=== PATIENT | male | born 1945 | race Caucasian/White ===

== ENCOUNTER 2018-03-25 09:22 | Inpatient (IN) ==
[2018-03-25] MEDS ORDERED: Pantoprazole Inj 80 MG in Sodium Chlor 0.9% Inj 50 ML IV.SIG ONE (09:54)
--- NOTE | 2018-03-25 09:58 | ED ---
HPI General Chief complaint: GI Bleed Stated complaint: GI Bleed Time Seen by Provider: 03/25/18 09:54 Source: patient Mode of arrival: ambulatory Limitations: no limitations History of Present Illness HPI Narrative: 73-year-old male patient presents to the ER today because he states that over the last few weeks he has been having diarrhea and over the last few days he started vomiting, was vomiting blood last night, and this morning vomited up dark blood as well as having dark diarrhea that is appearing tarry. He states that he was having palpitations this morning. He denies significant abdominal pains. He denies other issues. Modifying Factors: None Associated Signs & Symptoms: Nausea, vomiting, diarrhea, dark stools, GI bleed Risk Factors: None Related Data Home Medications Medication Instructions Recorded Confirmed alprazolam 1 mg PO BID PRN 03/25/18 03/25/18 buspirone 5 mg PO BID PRN 03/25/18 03/25/18 Allergies Allergy/AdvReac Type Severity Reaction Status Date / Time No Known Allergies Allergy Verified 03/25/18 09:48 Review of Systems ROS: all other systems reviewed are negative PMFSH History History Provided By: Patient Medical History Medical History Anxiety (Acute) Surgical History Surgical History Hx of appendectomy (Acute) Social History Social History Smoking Status: Former smoker How Often Do You Have a Drink Containing Alcohol: 4 or more times a week Recent Travel in [facility] within the Last 8 Weeks: No Recent Out of Country Travel within the Last 8 Weeks: No Exam Narrative Exam Narrative: GENERAL: Well-developed elderly white male patient currently in mild distress. Awake and oriented x3. SKIN: Focused skin assessment warm/dry. HEAD: Atraumatic. Normocephalic. EYES: Pupils equal and round. No scleral icterus. No injection or drainage. ENT: No nasal bleeding or discharge. Mucous membranes pink and moist. NECK: Trachea midline. No JVD. CARDIOVASCULAR: Regular rate and rhythm. No murmur appreciated. RESPIRATORY: No accessory muscle use. Clear to auscultation. Breath sounds equal bilaterally. GASTROINTESTINAL: Abdomen soft, non-tender, nondistended. Hepatic and splenic margins not palpable. RECTAL EXAM: No masses or tenderness, stool is dark, Hemoccult positive. MUSCULOSKELETAL: No obvious deformities. No clubbing. No cyanosis. No edema. NEUROLOGICAL: Awake and alert. No obvious cranial nerve deficits. Motor grossly within normal limits. Normal speech. PSYCHIATRIC: Appropriate mood and affect; insight and judgment normal. Procedures Hemaprompt Stool Procedural Steps Taken: specimen placed in appropriate test area, developer placed on specimen and control areas and controls appropriately positive and negative Hemaprompt Stool Result: positive Course Initial Documented Vital Signs Temperature 98.3 F 03/25/18 09:50 Pulse Rate 119 H 03/25/18 09:50 Respiratory Rate 18 03/25/18 09:50 Blood Pressure 127/58 L 03/25/18 09:50 Pulse Oximetry 100 03/25/18 09:50 Last Documented Vital Signs Temperature 98.3 F 03/25/18 09:50 Pulse Rate 119 H 03/25/18 09:50 Respiratory Rate 18 03/25/18 09:50 Blood Pressure 127/58 L 03/25/18 09:50 Pulse Oximetry 100 03/25/18 09:50 Medical Decision Making MDM Narrative Medical decision making narrative: Hemoccult is positive, there is suspicion of GI bleed. Patient was given Protonix in the ER and at this point, H&H is stable and vital signs are stable as well. Case is discussed with Dr. Givens for admission. Medical Screen Exam Complete: Yes Emergency Medical Condition: Yes Differential Diagnosis Differential Diagnosis: GI bleed GI bleed versus gastritis versus gastroenteritis Lab Data Lab results reviewed: Yes I reviewed the patient's lab results. Result diagrams: 03/25/18 10:00 03/25/18 10:00 Lab Results 03/25/18 03/25/18 03/25/18 Range/Units 10:00 10:00 10:00 WBC 8.0 (4.0-11.0) th/mm3 RBC 3.03 L (4.50-5.90) mil/mm3 Hgb 10.8 L (13.0-17.0) gm/dL Hct 31.9 L (39.0-51.0) % MCV 105.0 H (80.0-100.0) fL MCH 35.5 H (27.0-34.0) pg MCHC 33.8 (32.0-36.0) % RDW 17.7 H (11.6-17.2) % Plt Count 212 (150-450) th/mm3 MPV 9.2 (7.0-11.0) fL Neut % (Auto) 77.1 H (16.0-70.0) % Lymph % (Auto) 16.9 (9.0-44.0) % [place] % (Auto) 5.4 (0.0-8.0) % Eos % (Auto) 0.2 (0.0-4.0) % Baso % (Auto) 0.4 (0.0-2.0) % Neut # (Auto) 6.1 (1.8-7.7) th/mm3 Lymph # (Auto) 1.3 (1.0-4.8) th/mm3 [place] # (Auto) 0.4 (0.0-0.9) th/mm3 Eos # (Auto) 0.0 (0.0-0.4) th/mm3 Baso # (Auto) 0.0 (0.0-0.2) th/mm3 WBC Differential . Differential Comment Auto diff final PT 16.9 H (9.8-11.6) sec INR 1.7 Ratio APTT 26.6 (23.4-31.7) sec Sodium 142 (136-145) meq/L Potassium 4.8 (3.5-5.1) meq/L Chloride 109 H (98-107) meq/L Carbon Dioxide 22.0 (21.0-32.0) meq/L Anion Gap 11 (5-15) meq/L BUN 53 H (7-18) mg/dL Creatinine 1.41 H (0.60-1.30) mg/dL Estimated GFR 49 L (>89) mL/min Random Glucose 157 H (74-106) mg/dL Calcium 8.2 L (8.5-10.1) mg/dL Total Bilirubin 1.5 H (0.2-1.0) mg/dL AST 76 H (15-37) U/L ALT 37 (12-78) U/L Alkaline Phosphatase 203 H (45-117) U/L Total Protein 6.4 (6.4-8.2) g/dL Albumin 2.5 L (3.4-5.0) g/dL Blood Type Blood Type Recheck Antibody Screen 03/25/18 Range/Units 10:00 WBC (4.0-11.0) th/mm3 RBC (4.50-5.90) mil/mm3 Hgb (13.0-17.0) gm/dL Hct (39.0-51.0) % MCV (80.0-100.0) fL MCH (27.0-34.0) pg MCHC (32.0-36.0) % RDW (11.6-17.2) % Plt Count (150-450) th/mm3 MPV (7.0-11.0) fL Neut % (Auto) (16.0-70.0) % Lymph % (Auto) (9.0-44.0) % [place] % (Auto) (0.0-8.0) % Eos % (Auto) (0.0-4.0) % Baso % (Auto) (0.0-2.0) % Neut # (Auto) (1.8-7.7) th/mm3 Lymph # (Auto) (1.0-4.8) th/mm3 [place] # (Auto) (0.0-0.9) th/mm3 Eos # (Auto) (0.0-0.4) th/mm3 Baso # (Auto) (0.0-0.2) th/mm3 WBC Differential Differential Comment PT (9.8-11.6) sec INR Ratio APTT (23.4-31.7) sec Sodium (136-145) meq/L Potassium (3.5-5.1) meq/L Chloride (98-107) meq/L Carbon Dioxide (21.0-32.0) meq/L Anion Gap (5-15) meq/L BUN (7-18) mg/dL Creatinine (0.60-1.30) mg/dL Estimated GFR (>89) mL/min Random Glucose (74-106) mg/dL Calcium (8.5-10.1) mg/dL Total Bilirubin (0.2-1.0) mg/dL AST (15-37) U/L ALT (12-78) U/L Alkaline Phosphatase (45-117) U/L Total Protein (6.4-8.2) g/dL Albumin (3.4-5.0) g/dL Blood Type O Positive Blood Type Recheck Not needed Antibody Screen Negative Discharge Plan Discharge Disposition Patient Disposition: 30 Still Patient Discharge Condition Condition: Stable Discharge Details Anticipated Discharge Date: 03/25/18 Diagnosis: Upper gastrointestinal hemorrhage Physicians Team ED Provider: Jonatan Dailey Primary Care Provider: Primary Care Marily Martin Rxs /Orders / Referrals /Forms Prescriptions: No Action buspirone 5 mg Tablet 5 mg PO BID PRN (Reason: Anxiety) RF: 0 alprazolam 1 mg Tablet 1 mg PO BID PRN (Reason: Anxiety) RF: 0 Status ED Status: With Doctor
[2018-03-25 10:12] LABS: Baso % (Auto) 0.4 % (0.0-2.0); Eos % (Auto) 0.2 % (0.0-4.0); Hematocrit 31.9 % (39.0-51.0); Hemoglobin 10.8 gm/dL (13.0-17.0); Lymph # (Auto) 1.3 th/mm3 (1.0-4.8); Lymph % (Auto) 16.9 % (9.0-44.0); Mean Corpuscular HGB Conc 33.8 % (32.0-36.0); Mean Corpuscular Hemoglobin 35.5 pg (27.0-34.0); Mean Platelet Volume 9.2 fL (7.0-11.0); Mono # (Auto) 0.4 th/mm3 (0.0-0.9); Mono % (Auto) 5.4 % (0.0-8.0); Neut # (Auto) 6.1 th/mm3 (1.8-7.7); Neut % (Auto) 77.1 % (16.0-70.0); Platelet Count 212 th/mm3 (150-450); Red Blood Count 3.03 mil/mm3 (4.50-5.90); Red Cell Distribution Width 17.7 % (11.6-17.2)
[2018-03-25 10:23] LABS: Activated Partial Thrombo Time 26.6 sec (23.4-31.7); INR 1.7 Ratio; Prothrombin Time 16.9 sec (9.8-11.6)
[2018-03-25 10:38] LABS: Albumin 2.5 g/dL (3.4-5.0); Anion Gap 11 meq/L (5-15); Aspartate Aminotransferase 76 U/L (15-37); Blood Urea Nitrogen 53 mg/dL (7-18); Calcium 8.2 mg/dL (8.5-10.1); Chloride 109 meq/L (98-107); Glomerular Filtration Rate 49 mL/min (>89); Glucose,Random 157 mg/dL (74-106); Potassium 4.8 meq/L (3.5-5.1); Sodium 142 meq/L (136-145)
[2018-03-25 10:42] LABS: Alanine Aminotransferase 37 U/L (12-78); Alkaline Phosphatase 203 U/L (45-117); Total Protein 6.4 g/dL (6.4-8.2)
[2018-03-25] MEDS ORDERED: Bisacodyl 10 MG Supp RECTAL PRN (11:15)
[2018-03-25] MEDS ORDERED: Acetaminophen 325 MG Tablet PO PRN (11:15)
[2018-03-25] MEDS: Pantoprazole Inj 40 MG Vial IV.PUSH SCH (11:47)
--- NOTE | 2018-03-25 12:14 | P.HP ---
History of Present Illness Service: Hospitalist Primary Care Physician: No Primary Care Physician Chief Complaint: Diarrhea, dark stool, dark nausea/vomiting. History of Present Illness: Mr. Mitchell is a pleasant 73-year-old male with a history of anxiety, alcohol use who presents to the emergency department due to 3-week duration of diarrhea as well as 2-day duration of nausea vomiting with dark cool type of vomitus. Patient has been having diarrhea for 3 weeks that is greasy and sludge in quality. Initially he did not have much abdominal pain. However in the last few days, he started experiencing abdominal pain. Yesterday and this morning he noticed red blood in the stool. Patient also started having some nausea vomiting. He noticed dark cool color vomitus. Patient denies any history of any liver disease. He does drink 3-4 beer a day. Upon admission patient's hemoglobin was 10.8, MCV 105, INR 1.7, BUN 53 and creatinine 1.41. Past medical history: Anxiety Past surgical history: Appendectomy after ruptured appendix 12 years ago Social history: He quit smoking in 1974. He drinks 3-4 beers a day. Family history: Significant history of liver cancer in the maternal side of the family. Patient's mother had liver cancer at age 58. Inpatient Certification: I certify that the inpatient services were ordered in accordance with Medicare regulations governing the order. This includes certification that hospital inpatient services are reasonable and necessary and in the case of services not specified as inpatient-only under 42 CFR 419.22(n), that they are appropriately provided as inpatient services in accordance to with the 2-midnight benchmark under 43 CFR 412.3(e) Estimated Total Length of Stay (Days): 3 Plans for Post Hospital Care: Not yet determined Review of Systems All other systems reviewed negative except as stated [facility] - History History Provided By: Patient - Medical History Medical History: Medical History (Last Reviewed 03/25/18 @ 12:30 by Rachid Guerra DO) Anxiety - Surgical History Surgical History: Surgical History (Last Reviewed 03/25/18 @ 12:30 by Rachid Guerra DO) Hx of appendectomy - Tobacco History Smoking Status: Former smoker - Alcohol History How Often Do You Have a Drink Containing Alcohol: 4 or more times a week - Travel History Recent Travel in the [place] Within the Last 8 Weeks: No Recent Travel Out of the Country Within the Last 8 Weeks: No - Immunization History Tetanus Immunization: Unsure Medications and Allergies Active Medications: Active Medications Acetaminophen (Tylenol) 650 mg PO Q4H PRN PRN Reason: Headache, fever, pain 1-4 Al Hydroxide/Mg Hydroxide (Milk Of Magnesia Liq) 30 ml PO Q12H PRN PRN Reason: Mild Constipation Alprazolam (Xanax) 1 mg PO BID PRN PRN Reason: Anxiety Bisacodyl (Dulcolax Supp) 10 mg RECTAL DAILY PRN PRN Reason: SEVERE CONSITIPATION Buspirone HCl (Buspar) 5 mg PO BID PRN PRN Reason: Anxiety Sodium Chloride (Ns Inj) 1,000 mls @ 100 mls/hr IV.CONT .Q10H MARY Ceftriaxone Sodium 1,000 mg/ (Sodium Chloride) 100 mls @ 200 mls/hr IV.SIG Q24H [facility] Last Admin: 03/25/18 12:11 Dose: 200 mls/hr Lactulose (Lactulose Liq) 30 ml PO DAILY PRN PRN Reason: SEVERE CONSITIPATION Ondansetron HCl (Zofran Inj) 4 mg IV.PUSH Q6H PRN PRN Reason: NAUSEA OR VOMITING Pantoprazole Sodium (Protonix Inj) 40 mg IV.PUSH Q12H [facility] Last Admin: 03/25/18 11:47 Dose: Not Given Sennosides (Senokot) 17.2 mg PO Q12H PRN PRN Reason: Moderate Constipation Sodium Chloride (Ns Flush) 2 ml IV.FLUSH PRN PRN PRN Reason: FLUSH AFTER USING IV ACCESS Last Admin: 03/25/18 10:26 Dose: 2 ml Allergies Allergy/AdvReac Type Severity Reaction Status Date / Time No Known Allergies Allergy Verified 03/25/18 09:48 Home Medications Medication Instructions Recorded Confirmed Type alprazolam 1 mg PO BID PRN 03/25/18 03/25/18 History buspirone 5 mg PO BID PRN 03/25/18 03/25/18 History Exam Vital signs: Vital Signs 03/25/18 09:50 Temperature 98.3 F Pulse Rate 119 H Respiratory Rate 18 Blood Pressure 127/58 L Pulse Oximetry 100 Intake & Output 03/24/18 03/25/18 03/25/18 18:59 06:59 18:59 Weight 65.771 kg Narrative: GENERAL: This is a well-nourished, well-developed patient, in no apparent distress. SKIN: No rashes, ecchymoses or lesions. Warm and dry. HEAD: Atraumatic. Normocephalic. No temporal or scalp tenderness. EYES: Pupils equal round and reactive. No injection or drainage. ENT: Nose without bleeding, purulent drainage or septal hematoma. Airway patent. NECK: Trachea midline. No lymphadenopathy. Supple, nontender, no meningeal signs. CARDIOVASCULAR: Regular rate and rhythm without murmurs, gallops, or rubs. No JVD. RESPIRATORY: Clear to auscultation. Breath sounds equal bilaterally. No wheezes , rales, or rhonchi. GASTROINTESTINAL: Abdomen somewhat distended, some mild pressure-like tenderness on palpation on the right upper quadrant. MUSCULOSKELETAL: Extremities without clubbing, cyanosis, or edema. NEUROLOGICAL: Awake and alert. Cranial nerves II through XII intact. No focal neurological deficits. Normal speech. Results - Labs CBC & Chem 7: 03/25/18 10:00 03/25/18 10:00 Labs: Laboratory Results - last 24 hr 03/25/18 03/25/18 03/25/18 10:00 10:00 10:00 WBC 8.0 RBC 3.03 L Hgb 10.8 L Hct 31.9 L MCV 105.0 H MCH 35.5 H MCHC 33.8 RDW 17.7 H Plt Count 212 MPV 9.2 Neut % (Auto) 77.1 H Lymph % (Auto) 16.9 [place] % (Auto) 5.4 Eos % (Auto) 0.2 Baso % (Auto) 0.4 Neut # (Auto) 6.1 Lymph # (Auto) 1.3 [place] # (Auto) 0.4 Eos # (Auto) 0.0 Baso # (Auto) 0.0 WBC Differential . Differential Comment Auto diff final PT 16.9 H INR 1.7 APTT 26.6 Sodium 142 Potassium 4.8 Chloride 109 H Carbon Dioxide 22.0 Anion Gap 11 BUN 53 H Creatinine 1.41 H Estimated GFR 49 L Random Glucose 157 H Calcium 8.2 L Total Bilirubin 1.5 H AST 76 H ALT 37 Alkaline Phosphatase 203 H Total Protein 6.4 Albumin 2.5 L Blood Type Blood Type Recheck Antibody Screen 03/25/18 10:00 WBC RBC Hgb Hct MCV MCH MCHC RDW Plt Count MPV Neut % (Auto) Lymph % (Auto) [place] % (Auto) Eos % (Auto) Baso % (Auto) Neut # (Auto) Lymph # (Auto) [place] # (Auto) Eos # (Auto) Baso # (Auto) WBC Differential Differential Comment PT INR APTT Sodium Potassium Chloride Carbon Dioxide Anion Gap BUN Creatinine Estimated GFR Random Glucose Calcium Total Bilirubin AST ALT Alkaline Phosphatase Total Protein Albumin Blood Type O Positive Blood Type Recheck Not needed Antibody Screen Negative Caprini VTE Risk Assessment Caprini VTE Risk Assessment: No/Low Risk (score <= 1) Caprini Risk Assessment Model: Point Value = 1 Point Value = 2 Point Value = 3 Point Value = 5 Age 41-60 Minor surgery BMI > 25 kg/m2 Swollen legs Varicose veins or History of unexplained or recurrent spontaneous Oral contraceptives or hormone replacement Sepsis (< 1 month) Serious lung disease, including pneumonia (< 1 month) Abnormal pulmonary function Acute myocardial infarction Congestive heart failure (< 1 month) History of inflammatory bowel disease Medical patient at bed rest Age 61-74 Arthroscopic surgery Major open surgery (> 45 min) Laparoscopic surgery (> 45 min) Malignancy Confined to bed (> 72 hours) Immobilizing plaster cast Central venous access Age >= 75 History of VTE Family history of VTE Factor V Leiden Prothrombin [id number] Lupus anticoagulant Anticardiolipin antibodies Elevated serum homocysteine Heparin-induced thrombocytopenia Other congenital or acquired thrombophilia Stroke (< 1 month) Elective arthroplasty Hip, pelvis, or leg fracture Acute spinal cord injury (< 1 month) Prophylaxis Regimen: Total Risk Factor Score Risk Level Prophylaxis Regimen 0-1 Low Early ambulation 2 Moderate Order ONE of the following: *Sequential Compression Device (SCD) *Heparin 5000 units SQ BID 3-4 Higher Order ONE of the following medications: *Heparin 5000 units SQ TID *Enoxaparin/Lovenox 40 mg SQ daily (WT < 150 kg, CrCl > 30 mL/min) *Enoxaparin/Lovenox 30 mg SQ daily (WT < 150 kg, CrCl > 10-29 mL/min) *Enoxaparin/Lovenox 30 mg SQ BID (WT < 150 kg, CrCl > 30 mL/min) AND/OR *Sequential Compression Device (SCD) 5 or more Highest Order ONE of the following medications: *Heparin 5000 units SQ TID (Preferred with Epidurals) *Enoxaparin/Lovenox 40 mg SQ daily (WT < 150 kg, CrCl > 30 mL/min) *Enoxaparin/Lovenox 30 mg SQ daily (WT < 150 kg, CrCl > 10-29 mL/min) *Enoxaparin/Lovenox 30 mg SQ BID (WT < 150 kg, CrCl > 30 mL/min) AND *Sequential Compression Device (SCD) Assessment and Plan - Plan Mr. Mitchell is a 73-year-old male with a history of anxiety, alcohol use who presents to the emergency department due to 3-week duration of diarrhea and 2- day duration of nausea vomiting with dark material. Hemoglobin on admission 10.8. Acute diarrhea Anemia with possible acute GI blood loss Possible alcoholic liver disease Hemoglobin was 13-15 in 2015. Hemoglobin currently 10.8. We will consult gastroenterology for possible EGD and colonoscopy. Patient's history of alcohol use is concerning for liver disease. His INR is elevated to 1.7. We will obtain liver ultrasound. Start ceftriaxone 1 g daily for possible variceal bleed. Continue IV normal saline at 150 cc/h. Anxiety Continue buspirone and Xanax as needed. Alcohol abuse Patient drinks 3-4 beers a day. He is counseled to consider quitting alcohol altogether. Sinus Tachycardia EKG shows sinus tach. Possibly due to dehydration -Continue IV hydration. Full code. SCDs for DVT Prophylaxis.
[2018-03-25] MEDS: Sod Chloride 0.9% Inj 1,000 ML IV.CONT SCH ×2 (13:08→22:07)
--- NOTE | 2018-03-25 14:59 | P.CONGI ---
History of Present Illness Consult date: 03/25/18 Consult reason: Upper GI bleed Chief complaint: GI bleed History of Present Illness: This patient is a 73-year-old male who presents to the emergency room today with report of loose stools over the last few days with nausea and vomiting. Patient has history of anxiety and alcohol use. Surgical history includes appendectomy. Patient states that this morning he vomited up dark blood as well as had dark loose stool that he describes as black and tarry. Patient denies abdominal pain, fever or chills. Upon consultation, patient reports 3-week history of projectile diarrhea. Patient states he has been having 6-7 loose stools daily. Patient endorses accompanied nausea and vomiting. States initially rectal bleeding was bright red and then turned black and tarry over the last 2 days with noted abdominal distention. Patient denies any abdominal pain. Denies use of blood thinners. States he will take and one Advil monthly as needed for headache. Patient states last EGD and colonoscopy was done 12 years ago without any noted findings. Patient denies any unintended weight loss but does endorse decreased appetite. Patient denies any heartburn or difficulty swallowing. Patient denies any use of tobacco products but does report drinking 3-4 beers every evening with dinner. Patient endorses family history Mom at age 48 from liver cancer. States maternal side of family has increased incidence of liver cancer. Our service has been consulted to evaluate patient for upper GI bleeding; possible need for EGD/colonoscopy. <Betsy Lorenzana - Last Filed: 03/25/18 14:59> Review of Systems All other systems reviewed negative except as stated in HPI <Betsy Lorenzana - Last Filed: 03/25/18 14:59> PMFSH - History History Provided By: Patient - Medical History Medical History: Medical History (Last Reviewed 03/25/18 @ 12:30 by Rachid Guerra DO) Anxiety - Surgical History Surgical History: Surgical History (Last Reviewed 03/25/18 @ 12:30 by Rachid Guerra DO) Hx of appendectomy - Tobacco History Smoking Status: Former smoker - Alcohol History How Often Do You Have a Drink Containing Alcohol: 4 or more times a week - Travel History Recent Travel in the [place] Within the Last 8 Weeks: No Recent Travel Out of the Country Within the Last 8 Weeks: No - Immunization History Tetanus Immunization: Unsure <Betsy Lorenznaa - Last Filed: 03/25/18 14:59> - Medical History Medical History: Medical History (Last Reviewed 03/25/18 @ 12:30 by Rachid Guerra DO) Anxiety - Surgical History Surgical History: Surgical History (Last Reviewed 03/25/18 @ 12:30 by Rachid Guerra DO) Hx of appendectomy <Samantha Huynh - Last Filed: 03/26/18 10:23> Medications and Allergies Active Medications: Active Medications Acetaminophen (Tylenol) 650 mg PO Q4H PRN PRN Reason: Headache, fever, pain 1-4 Al Hydroxide/Mg Hydroxide (Milk Of Magnesia Liq) 30 ml PO Q12H PRN PRN Reason: Mild Constipation Alprazolam (Xanax) 1 mg PO BID PRN PRN Reason: Anxiety Bisacodyl (Dulcolax Supp) 10 mg RECTAL DAILY PRN PRN Reason: SEVERE CONSITIPATION Buspirone HCl (Buspar) 5 mg PO BID PRN PRN Reason: Anxiety Sodium Chloride (Ns Inj) 1,000 mls @ 150 mls/hr IV.CONT .Q6H40M [facility] Stop: 03/27/18 11:14 Last Admin: 03/25/18 13:08 Dose: 100 mls/hr Ceftriaxone Sodium 1,000 mg/ (Sodium Chloride) 100 mls @ 200 mls/hr IV.SIG Q24H [facility] Last Infusion: 03/25/18 13:07 Dose: Infused Lactulose (Lactulose Liq) 30 ml PO DAILY PRN PRN Reason: SEVERE CONSITIPATION Ondansetron HCl (Zofran Inj) 4 mg IV.PUSH Q6H PRN PRN Reason: NAUSEA OR VOMITING Pantoprazole Sodium (Protonix Inj) 40 mg IV.PUSH Q12H [facility] Last Admin: 03/25/18 11:47 Dose: Not Given Sennosides (Senokot) 17.2 mg PO Q12H PRN PRN Reason: Moderate Constipation Sodium Chloride (Ns Flush) 2 ml IV.FLUSH PRN PRN PRN Reason: FLUSH AFTER USING IV ACCESS Last Admin: 03/25/18 10:26 Dose: 2 ml <Betsy Lorenzana - Last Filed: 03/25/18 14:59> Active Medications: Active Medications Acetaminophen (Tylenol) 650 mg PO Q4H PRN PRN Reason: Headache, fever, pain 1-4 Al Hydroxide/Mg Hydroxide (Milk Of Magnesia Liq) 30 ml PO Q12H PRN PRN Reason: Mild Constipation Alprazolam (Xanax) 1 mg PO BID PRN PRN Reason: Anxiety Bisacodyl (Dulcolax Supp) 10 mg RECTAL DAILY PRN PRN Reason: SEVERE CONSITIPATION Buspirone HCl (Buspar) 5 mg PO BID PRN PRN Reason: Anxiety Sodium Chloride (Ns Inj) 1,000 mls @ 150 mls/hr IV.CONT .Q6H40M [facility] Stop: 03/27/18 11:14 Last Infusion: 03/26/18 09:02 Dose: Infused Ceftriaxone Sodium 1,000 mg/ (Sodium Chloride) 100 mls @ 200 mls/hr IV.SIG Q24H [facility] Last Infusion: 03/25/18 13:07 Dose: Infused Lactated Ringer's (Lr 1000 Ml Inj) 1,000 mls @ 30 mls/hr IV.CONT .Q24H ONE Stop: 03/26/18 20:59 Last Admin: 03/26/18 09:01 Dose: 30 mls/hr Sodium Chloride (Ns Inj) 500 mls @ 30 mls/hr IV.CONT .[id number] ONE Stop: 03/26/18 13:39 Lactulose (Lactulose Liq) 30 ml PO DAILY PRN PRN Reason: SEVERE CONSITIPATION Ondansetron HCl (Zofran Inj) 4 mg IV.PUSH Q6H PRN PRN Reason: NAUSEA OR VOMITING Pantoprazole Sodium (Protonix Inj) 40 mg IV.PUSH Q12H [facility] Last Admin: 03/26/18 00:23 Dose: 40 mg Sennosides (Senokot) 17.2 mg PO Q12H PRN PRN Reason: Moderate Constipation Sodium Chloride (Ns Flush) 2 ml IV.FLUSH PRN PRN PRN Reason: FLUSH AFTER USING IV ACCESS Last Admin: 03/25/18 10:26 Dose: 2 ml <Samantha Huynh A - Last Filed: 03/26/18 10:23> Allergies Allergy/AdvReac Type Severity Reaction Status Date / Time No Known Allergies Allergy Verified 03/25/18 09:48 Home Medications Medication Instructions Recorded Confirmed Type alprazolam 1 mg PO BID PRN 03/25/18 03/25/18 History buspirone 5 mg PO BID PRN 03/25/18 03/25/18 History Exam Vital signs: Vital Signs 03/25/18 09:50 03/25/18 13:23 Temperature 98.3 F 97.6 F Pulse Rate 119 H 125 H Respiratory Rate 18 17 Blood Pressure 127/58 L 125/62 Pulse Oximetry 100 97 Intake & Output 03/24/18 03/25/18 03/25/18 18:59 06:59 18:59 Intake Total 150 / 150 Balance 150 / 150 Weight 65.771 kg Intake: IV 150 / 150 Protonix Inj 80 MG In NS Inj 50 50 / 50 ML @ 600 mls/hr IV.SIG BOLUS ONE Rx#:[id number] Rocephin Inj 1,000 MG In NS Inj 100 / 100 100 ML @ 200 mls/hr IV.SIG Q24H [facility] Rx#:[id number] - Constitutional no acute distress, chronically ill appearing - Routine HEENT Exam Head: Present: normocephalic - Routine Respiratory Exam Present: CTA bilaterally. Absent: accessory muscle use - Routine Abdominal Exam Present: soft, normoactive bowel sounds, distended. Absent: tenderness, guarding, firm, rigid - Routine Extremities Exam Present: pulses intact - Routine Skin Exam Present: dry, warm - Routine Neurological Exam Present: alert, oriented X3 <Lorenzana,Betsy - Last Filed: 03/25/18 14:59> Vital signs: Vital Signs 03/25/18 13:23 03/25/18 16:00 03/25/18 19:25 Temperature 97.6 F 98.0 F Pulse Rate 125 H 124 H Respiratory Rate 17 17 Blood Pressure 125/62 132/63 Pulse Oximetry 97 98 98 03/25/18 20:00 03/26/18 00:00 03/26/18 04:00 Temperature 97.6 F 97.4 F L 97.5 F L Pulse Rate 125 H 113 H 113 H Respiratory Rate 20 20 20 Blood Pressure 123/75 119/58 L 118/62 Pulse Oximetry 97 96 95 03/26/18 08:00 Temperature 97.6 F Pulse Rate 115 H Respiratory Rate 18 Blood Pressure 122/67 Pulse Oximetry 94 L Intake & Output 03/25/18 03/26/18 03/26/18 18:59 06:59 18:59 Intake Total 870 / 870 1120 / 1120 500 / 500 Output Total 125 / 125 Balance 870 / 870 995 / 995 500 / 500 Weight 65.771 kg 67.6 kg Intake: IV 150 / 150 1000 / 1000 500 / 500 NS Inj 1,000 ML @ 150 mls/hr IV 1000 / 1000 500 / 500 .CONT .Q6H40M [facility] Rx#:[id number] Protonix Inj 80 MG In NS Inj 50 50 / 50 ML @ 600 mls/hr IV.SIG BOLUS ONE Rx#:[id number] Rocephin Inj 1,000 MG In NS Inj 100 / 100 100 ML @ 200 mls/hr IV.SIG Q24H [facility] Rx#:[id number] Oral 720 / 720 120 / 120 Output: Urine 125 / 125 Other: # Voids 1 1 Date of Last Bowel Movement 03/25/18 # Bowel Movements 1 1 <Samantha Huynh A - Last Filed: 03/26/18 10:23> Results - Labs CBC & Chem 7: 03/25/18 10:00 03/25/18 10:00 Labs: Laboratory Results - last 24 hr 03/25/18 03/25/18 03/25/18 10:00 10:00 10:00 WBC 8.0 RBC 3.03 L Hgb 10.8 L Hct 31.9 L MCV 105.0 H MCH 35.5 H MCHC 33.8 RDW 17.7 H Plt Count 212 MPV 9.2 Neut % (Auto) 77.1 H Lymph % (Auto) 16.9 [place] % (Auto) 5.4 Eos % (Auto) 0.2 Baso % (Auto) 0.4 Neut # (Auto) 6.1 Lymph # (Auto) 1.3 [place] # (Auto) 0.4 Eos # (Auto) 0.0 Baso # (Auto) 0.0 WBC Differential . Differential Comment Auto diff final PT 16.9 H INR 1.7 APTT 26.6 Sodium 142 Potassium 4.8 Chloride 109 H Carbon Dioxide 22.0 Anion Gap 11 BUN 53 H Creatinine 1.41 H Estimated GFR 49 L Random Glucose 157 H Calcium 8.2 L Total Bilirubin 1.5 H AST 76 H ALT 37 Alkaline Phosphatase 203 H Total Protein 6.4 Albumin 2.5 L Blood Type Blood Type Recheck Antibody Screen 03/25/18 10:00 WBC RBC Hgb Hct MCV MCH MCHC RDW Plt Count MPV Neut % (Auto) Lymph % (Auto) [place] % (Auto) Eos % (Auto) Baso % (Auto) Neut # (Auto) Lymph # (Auto) [place] # (Auto) Eos # (Auto) Baso # (Auto) WBC Differential Differential Comment PT INR APTT Sodium Potassium Chloride Carbon Dioxide Anion Gap BUN Creatinine Estimated GFR Random Glucose Calcium Total Bilirubin AST ALT Alkaline Phosphatase Total Protein Albumin Blood Type O Positive Blood Type Recheck Not needed Antibody Screen Negative <Betsy Lorenzana - Last Filed: 03/25/18 14:59> - Labs CBC & Chem 7: 03/25/18 10:00 03/25/18 10:00 Labs: Laboratory Results - last 24 hr 03/25/18 03/25/18 03/25/18 10:00 10:00 10:00 PT 16.9 H INR 1.7 APTT 26.6 Sodium 142 Potassium 4.8 Chloride 109 H Carbon Dioxide 22.0 Anion Gap 11 BUN 53 H Creatinine 1.41 H Estimated GFR 49 L Random Glucose 157 H Calcium 8.2 L Total Bilirubin 1.5 H AST 76 H ALT 37 Alkaline Phosphatase 203 H Total Protein 6.4 Albumin 2.5 L Blood Type O Positive Blood Type Recheck Not needed Antibody Screen Negative - Imaging Impressions Abdomen/Pelvis CT 03/26/18 00:02 CONCLUSION: 1. Cirrhotic liver with stigmata of portal hypertension. Liver masses including dominant right lobe mass worrisome for hepatocellular carcinoma. Portal vein thrombosis. 2. Abundant ascites with omental thickening which is nonspecific. <Samantha Huynh - Last Filed: 03/26/18 10:23> Assessment and Plan (1) Upper gastrointestinal hemorrhage Status: Acute Code(s): K92.2 - Gastrointestinal hemorrhage, unspecified - Plan This patient is a 73-year-old male who presents to the emergency room today with report of loose stools over the last few days with nausea and vomiting. Patient has history of anxiety and alcohol use. Surgical history includes appendectomy. Patient states that this morning he vomited up dark blood as well as had dark loose stool that he describes as black and tarry. Patient denies abdominal pain, fever or chills. Upon consultation, patient reports 3-week history of projectile diarrhea. Patient states he has been having 6-7 loose stools daily. Patient endorses accompanied nausea and vomiting. Denies any sick contacts or recent travel. States initially noted rectal bleeding was bright red and then turned black and tarry over the last 2 days with noted abdominal distention. Patient denies any abdominal pain. Denies use of blood thinners. States he will take and one Advil monthly as needed for headache. Patient states last EGD and colonoscopy was done 12 years ago without any noted findings. Patient denies any unintended weight loss but does endorse decreased appetite. Patient denies any heartburn or difficulty swallowing. Patient denies any use of tobacco products but does report drinking 3-4 beers every evening with dinner. Patient endorses family history Mom at age 48 from liver cancer. States maternal side of family has increased incidence of liver cancer. Our service has been consulted to evaluate patient for upper GI bleeding; possible need for EGD/colonoscopy Upper GI bleeding /diarrhea Patient endorses hematocrit emesis this a.m. as well as dark tarry stools for the last 2 days. Reports projectile diarrhea 6-7 episodes daily for 3 weeks. 03/25/2018 hemoglobin 10.8 hematocrit 31.9 platelet count 212 INR 1.7 total bilirubin 1.5 AST 76 ALT 37 alk phos 203 Plan -Clear liquid diet -N.p.o. after midnight -Obtain consent for EGD and colonoscopy -Monitor labs-hemoglobin and hematocrit -Monitor patient for bleeding -Antiemetic as per attending -Stool studies -Pantoprazole 40 mg IV push every 12 hours -Supportive care -IV hydration -Further recommendations to follow This patient has been seen by myself and Dr. Huynh and this note is written on his behalf - Attending Attestation Dr. Huynh <Betsy Lorenzana - Last Filed: 03/25/18 14:59> (1) Upper gastrointestinal hemorrhage Status: Acute Code(s): K92.2 - Gastrointestinal hemorrhage, unspecified - Attending Attestation Seen and examined, plan as above. Will schedule EGD/Colonoscopy. Further recommendations to follow. Thank you for the consult. <Samantha Huynh - Last Filed: 03/26/18 10:23>
[2018-03-25] MEDS ORDERED: Diatrizoate Meglum/Diatrizoate Sod Liq 9 ML UDC PO ONE (15:02)
[2018-03-25] MEDS ORDERED: Influenza (Quadrivalent) Vaccine 0.5 ML Syringe IM ONE (16:00)
[2018-03-25] MEDS ORDERED: PEG 3350/E-Lyte Soln 4000 ML Bottle PO ONE (16:00)
[2018-03-25] MEDS ORDERED: Sodium Chlor 0.9% Inj 500 ML IV.CONT ONE (21:00)
[2018-03-25] MEDS ORDERED: Morphine Sulfate Inj 2 MG/ML Vial IV.PUSH ONE (22:00)
[2018-03-26] MEDS: Pantoprazole Inj 40 MG Vial IV.PUSH SCH ×3 (00:23→23:28)
[2018-03-26] MEDS: Sod Chloride 0.9% Inj 1,000 ML IV.CONT SCH ×3 (04:40→23:28)
--- NOTE | 2018-03-26 08:41 | CT ---
EXAM DATE: 03/26/2018 8:31 AM EST AGE/SEX: 73 years / Male INDICATIONS: Blood in stool. CLINICAL DATA: This is the patient's initial encounter. Patient reports that signs and symptoms have been present for 1 day and indicates a pain score of 0/10. MEDICAL/SURGICAL HISTORY: None. Appendectomy. ORAL CONTRAST: Prescribed oral contrast ingested. RADIATION DOSE: 10.70 CTDI (mGy) COMPARISON: No prior exams available for comparison. TECHNIQUE: Multiple contiguous axial images were obtained through the abdomen and pelvis following b olus infusion of 93 ml Omnipaque 350 (iohexol) nonionic water-soluble contrast as a single exam dos e. Prescribed oral contrast ingested. Using automated exposure control and adjustment of the mA and/ or kV according to patient size, radiation dose was kept as low as reasonably achievable to obtain op timal diagnostic quality images. DICOM format image data is available electronically for review and comparison. FINDINGS: Lower Lungs: Chronic appearing interstitial changes in the right lung base with small right effusion. Liver: Heterogeneous liver appearance with low density areas most confluent in the dome of the right lobe, segment VIII. Portal vein thrombus extending into the proximal right and left portal veins. Abu ndant ascites. Massive left upper quadrant varices with spontaneous spleno renal shunt Spleen: Homogeneous density without enlargement. Pancreas: Unremarkable without mass or calcification. Kidneys: Cysts involving the left kidney upper and lower pole cortices. No evidence of hydronephrosi s. Adrenal Glands: Unremarkable. Aorta: The aorta and proximal iliac vessels are grossly unremarkable without aneurysmal dilation. Bowel/Mesentery: Ascites. Nonspecific thickening of the omentum which may be benign or malignant. No abnormally dilated bowel loops. Abdominal Wall: Tiny fat-containing umbilical hernia Retroperitoneum: No evidence of adenopathy in the retrocrural, para-aortic, or deep pelvic regions. Bladder: Contours are smooth. Reproductive Organs: No abnormal masses or calcifications seen. Inguinal: The inguinal region is unremarkable without evidence of adenopathy. Bony Structures: Unremarkable. CONCLUSION: 1. Cirrhotic liver with stigmata of portal hypertension. Liver masses including dominant right lobe mass worrisome for hepatocellular carcinoma. Portal vein thrombosis. 2. Abundant ascites with omental thickening which is nonspecific. Electronically signed by: Compa Porras MD 03/26/2018 8:40 AM EST
--- NOTE | 2018-03-26 10:59 | GIPROC ---
[facility] [address] [facility]. [facility] [place], [address] EGD PROCEDURE REPORT EXAM DATE: 03/26/2018 PATIENT NAME: Lele Sams MR #: [id number] BIRTHDATE: 1945 ATTENDING: Samantha Huynh MD ORDER #: [id number] [employer] SALES REPRESENTATIVE: Tate Coffman FISH HATCHERY SUPERVISOR STATUS: inpatient INDICATIONS: The patient is a 73 yr old male here for an EGD due to hematochezia PROCEDURE PERFORMED: EGD w/ biopsy MEDICATIONS: Per Anesthesia and None. TOPICAL ANESTHETIC: CONSENT: The patient understands the risks and benefits of the procedure and understands that these risks include, but are not limited to: sedation, allergic reaction, infection, perforation and/or bleeding. Alternative means of evaluation and treatment include, among others: physical exam, x-rays, and/or surgical intervention. The patient elects to proceed with this endoscopic procedure. medical equipment was checked for proper function. Hand hygiene and appropriate measures for infection prevention was taken. After the risks, benefits and alternatives of the procedure were thoroughly explained, Informed consent was verified, confirmed and timeout was successfully executed by the treatment team. The patient was anesthetized with topical anesthesia and the EC-3490Li (Pedi C) endoscope was introduced through the mouth and advanced to the third portion of the duodenum. Retroflexion was performed and was normal The gastroscope was then slowly withdrawn and removed. STOMACH: The mucosa of the stomach appeared normal. ESOPHAGUS: Multiple large non-bleeding, irregular shaped and clean-based ulcers were found in the lower third of the esophagus. Biopsies were taken at the center of the ulcers and at edge of the ulcers. DUODENUM: The duodenal mucosa appeared normal in the entire duodenum. ADVERSE EVENTS: There were no complications. IMPRESSIONS: 1. The mucosa of the stomach appeared normal 2. Multiple large ulcers were found in the lower third of the esophagus; biopsies were taken 3. Normal duodenal mucosa in the entire examined duodenum 4. Retroflexion was performed and was normal , no evidence of active or recent bleeding. RECOMMENDATIONS: 1. Await biopsy results. Biopsy results will not be ready for 7-10 days. If you don't hear from us in two weeks, call our office for biopsy results. 2. Continue PPI 3. Avoid NSAIDS PATIENT CONDITION: stable DISPOSITION: Observation REPEAT EXAM: NONE Samantha Huynh MD eSigned: Samantha Huynh MD 03/26/2018 10:58 AM cc: PATIENT NAME: Lele Sams MR#: [id number]
--- NOTE | 2018-03-26 11:02 | GIPROC ---
[facility] [address] [facility]. [facility], [address] COLONOSCOPY PROCEDURE REPORT EXAM DATE: 03/26/2018 PATIENT NAME: Lele Sams MR #: [id number] BIRTHDATE: 1945 ENDOSCOPIST: Samantha Huynh MD ORDER #: [id number] CROWN BLOCKER: Sis Escobar and Tate Coffman STATUS: inpatient INDICATIONS: The patient is a 73 yr old male here for a colonoscopy due to hematochezia PROCEDURE PERFORMED: Colonoscopy, diagnostic MEDICATIONS: Per Anesthesia and None. PREP QUALITY: fair PREP TYPE:GoLytely ESTIMATED BLOOD LOSS: None CONSENT: The patient understands the risks and benefits of the procedure and understands that these risks include, but are not limited to: sedation, allergic reaction, infection, perforation and/or bleeding. Alternative means of evaluation and treatment include, among others: physical exam, x-rays, and/or surgical intervention. The patient elects to proceed with this endoscopic procedure. medical equipment was checked for proper function. Hand hygiene and appropriate measures for infection prevention was taken. After the risks, benefits and alternatives of the procedure were thoroughly explained, Informed consent was verified, confirmed and timeout was successfully executed by the treatment team. A digital exam revealed no abnormalities of the rectum The Pentax EC-3490Li endoscope was introduced through the anus and advanced to the cecum, which was identified by both the appendix and ileocecal valve. The instrument was then slowly withdrawn as the colon was fully examined. COLON FINDINGS: Mild diverticulosis was noted in the sigmoid colon. Moderate sized internal hemorrhoids were found. Retroflexed views revealed no abnormalities The scope was then completely withdrawn from the patient and the procedure terminated. PROCEDURE WITHDRAWAL TIME:8minutes ADVERSE EVENTS: There were no complications. IMPRESSIONS: 1. Mild diverticulosis was noted in the sigmoid colon 2. Moderate sized internal hemorrhoids 3. No evidence of active or recent bleeding RECOMMENDATIONS: 1. Continue surveillance 2. High fiber diet RECALL: Return 5 years Colonoscopy Samantha Huynh MD eSigned: Samantha Huynh MD 03/26/2018 11:02 AM cc: PATIENT NAME: Lele Sams MR#: [id number]
--- NOTE | 2018-03-26 12:31 | P.PNIM ---
Subjective Interval history: 73yo m admitted with gib, s/p EGD/Colonoscopy this morning found to have multiple esophageal ulcers. pt seen and examined post procedure doing ok but he is very weak, denies sob or cp, no fever Physical Exam Vital signs: Last Vital Signs Temp 97.1 F L 03/26/18 11:06 Pulse 109 H 03/26/18 11:06 Resp 18 03/26/18 11:06 BP 123/59 L 03/26/18 11:06 Pulse Ox 100 03/26/18 11:06 Intake & Output 03/24/18 03/25/18 03/26/18 03/27/18 06:59 06:59 06:59 06:59 Intake Total 1989 850 / 850 Output Total 125 / 125 Balance 186 / 186 850 / 850 Weight 67.6 kg wdwn 73yo w m aaox3 nad heart s1s2 tachy regular lungs clear no wrr abd soft nondt pos bs ext no edema club deformity r ankle w chronic discoloration Results Labs CBC & Chem 7: 03/25/18 10:00 03/25/18 10:00 Labs: Microbiology 03/26/18 04:35 Stool Stool for WBCs - Final Imaging Imaging: Impressions Abdomen/Pelvis CT 03/26/18 00:02 CONCLUSION: 1. Cirrhotic liver with stigmata of portal hypertension. Liver masses including dominant right lobe mass worrisome for hepatocellular carcinoma. Portal vein thrombosis. 2. Abundant ascites with omental thickening which is nonspecific. Assessment and Plan (1) Upper gastrointestinal hemorrhage: Code(s): K92.2 - Gastrointestinal hemorrhage, unspecified Status: Acute Plan -ACUTE UPPER GIB due to esophageal ulcers - cont ppi, no nsaids or ac for now -ANEMIA of acute blood loss due to above -CIRRHOSIS with PORTAL THROMBOSIS, LIVER MASS R LOBE w ascites abundant - start lasix, aldactone if tolerated, needs follow up w gi, fluid restriction when stable and will get afp level, may need parascentesis. -ROGER w azotemia due to ugib - monitor renal function, start on lasix for ascites and then aldactone pending k level -ANXIETY /SIMI - cont home meds -ETOH ABUSE - DT protocol, thiamine, folate, cessation counseling, social consult -DVT prophylaxis - scds, due to hemorrhage -GENERALIZED WEAKNESS- PT EVAL -DISPOSITION - if hgb stable, home vs rehab 1-2 d pending pt eval and clinical course. Progress Note: Quality VTE Deep Vein Thrombosis/Pulmonary Embolism Present on Admission: No
[2018-03-26] MEDS: Folic Acid 1 MG Tablet PO SCH (13:57)
--- NOTE | 2018-03-26 18:29 | ECG ---
Date Performed: 03/25/2018 Time Performed: 12:57:47 PTAGE: 73 years EKG: SINUS TACHYCARDIA NONSPECIFIC T-WAVE ABNORMALITY Compared to previous tracing, T waves are flatter ABNORMAL RHYTHM ECG PREVIOUS TRACING : 10/08/2014 16.49 DOCTOR: Quirino Licea Interpretating Date/Time 03/26/2018 18:28:51
[2018-03-27] MEDS: Sod Chloride 0.9% Inj 1,000 ML IV.CONT SCH ×2 (01:24→12:43)
[2018-03-27 05:34] LABS: Baso % (Auto) 0.2 % (0.0-2.0); Eos % (Auto) 0.1 % (0.0-4.0); Hematocrit 21.6 % (39.0-51.0); Hemoglobin 7.4 gm/dL (13.0-17.0); Lymph # (Auto) 0.7 th/mm3 (1.0-4.8); Lymph % (Auto) 12.1 % (9.0-44.0); Mean Corpuscular HGB Conc 34.3 % (32.0-36.0); Mean Corpuscular Hemoglobin 35.4 pg (27.0-34.0); Mean Corpuscular Volume 103.2 fL (80.0-100.0); Mean Platelet Volume 9.4 fL (7.0-11.0); Mono # (Auto) 0.7 th/mm3 (0.0-0.9); Mono % (Auto) 13.3 % (0.0-8.0); Neut # (Auto) 4.1 th/mm3 (1.8-7.7); Neut % (Auto) 74.3 % (16.0-70.0); Platelet Count 87 th/mm3 (150-450); Red Blood Count 2.09 mil/mm3 (4.50-5.90); Red Cell Distribution Width 17.6 % (11.6-17.2); White Blood Count 5.5 th/mm3 (4.0-11.0)
[2018-03-27 06:04] LABS: Albumin 2.1 g/dL (3.4-5.0); Calcium 7.4 mg/dL (8.5-10.1); Carbon Dioxide 26.8 meq/L (21.0-32.0); Potassium 3.6 meq/L (3.5-5.1); Total Protein 5.3 g/dL (6.4-8.2)
[2018-03-27 06:45] LABS: Platelet Morphology Normal (Normal)
[2018-03-27] MEDS: Furosemide 20 MG Tablet PO SCH (09:02)
[2018-03-27] MEDS: Folic Acid 1 MG Tablet PO SCH (09:02)
--- NOTE | 2018-03-27 10:15 | US ---
EXAM DATE: 03/27/2018 10:08 AM EST AGE/SEX: 73 years / Male INDICATIONS: Abdominal pain. ETOH abuse. CLINICAL DATA: This is the patient's initial encounter. Patient reports that signs and symptoms have been present for 1 day and indicates a pain score of 0/10. MEDICAL/SURGICAL HISTORY: . ETOH abuse. Anxiety. Appendectomy. [place] [facility] [place] 03/26/2018. . MEASUREMENTS: Liver:__ 15.7 cm. Common Bile Duct:__ 7mm. Right Kidney:__ 11.3 x 4.6 x 4.6 cm. FINDINGS: Liver: The liver appears small, shrunken, heterogeneous and has nodular liver surface. The heterogene ity is very prominent in the anterior segment of the right lobe. The There is moderate ascites presen t. Portal Vein: There is thrombus within the main portal vein. Common Duct: No intraluminal mass or stone visualized. Gallbladder: Gallstones are seen. The gallbladder wall is thickened at 6 mm. Pancreas: The visualized portions are within normal limits Right Kidney: Normal echotexture and cortical thickness. No mass or hydronephrosis. Other: The spleen is enlarged measuring 14 cm in length. CONCLUSION: 1. Cirrhotic liver with heterogeneity particularly in the anterior segment the right lobe of the kan er. An underlying mass cannot be excluded. 2. Portal vein thrombosis. 3. Gallstones. The gallbladder wall is thickened. Gallbladder wall thickening can be associated with inflammatory change and cholecystitis but also with generalized hepatic disease. This finding can be correlated clinically. Electronically signed by: Compa Patton MD 03/27/2018 10:14 AM EST
[2018-03-27] MEDS: Pantoprazole Inj 40 MG Vial IV.PUSH SCH ×2 (12:45→23:02)
--- NOTE | 2018-03-27 14:47 | P.PNGI ---
Subjective Interval history: Patient laying supine in bed States tolerating meals well Reports mild intermittent abdominal discomfort Post EGD and liver ultrasound <Betsy Lorenzana - Last Filed: 03/27/18 14:42> Physical Exam Vital signs: Vital Signs 03/26/18 16:00 03/26/18 20:00 03/27/18 00:00 Temperature 98.4 F 99 F 98.7 F Pulse Rate 119 H 127 H 119 H Respiratory Rate 18 22 22 Blood Pressure 117/59 L 132/61 109/52 L Pulse Oximetry 91 L 92 L 92 L 03/27/18 04:00 03/27/18 08:00 03/27/18 12:00 Temperature 98.3 F 98.7 F 98.6 F Pulse Rate 114 H 116 H 123 H Respiratory Rate 20 17 18 Blood Pressure 110/56 L 121/59 L 131/59 L Pulse Oximetry 96 92 L 92 L Intake & Output 03/26/18 03/27/18 03/27/18 18:59 06:59 18:59 Intake Total 950 / 950 1000 / 1000 1772 / 1772 Balance 950 / 950 1000 / 1000 1772 / 1772 Weight 69.1 kg Intake: IV 600 / 600 1000 / 1000 1772 / 1772 NS Inj 1,000 ML @ 150 mls/hr IV 500 / 500 1000 / 1000 1612 / 1612 .CONT [facility] Rx#:[id number] Rocephin Inj 1,000 MG In NS Inj 100 / 100 100 / 100 100 ML @ 200 mls/hr IV.SIG Q24H [facility] Rx#:[id number] Anesthesia Amount 350 / 350 Other: # Voids 1 2 Date of Last Bowel Movement 03/26/18 03/26/18 03/26/18 # Bowel Movements 1 - Constitutional no acute distress, chronically ill appearing - Routine HEENT Exam Head: Present: normocephalic - Routine Respiratory Exam Present: CTA bilaterally - Routine Abdominal Exam Present: soft, normoactive bowel sounds, distended. Absent: tenderness, guarding, firm - Routine Skin Exam Present: dry, pallor, warm - Routine Neurological Exam Present: alert - Routine Psychiatric Exam Present: normal affect, cooperative <Betsy Lorenzana - Last Filed: 03/27/18 14:42> Vital signs: Vital Signs 03/27/18 16:00 03/27/18 20:00 03/28/18 00:00 Temperature 98.9 F 99 F 99 F Pulse Rate 124 H 121 H 135 H Respiratory Rate 17 22 22 Blood Pressure 109/57 L 111/56 L 110/53 L Pulse Oximetry 92 L 92 L 92 L 03/28/18 08:00 Temperature 98.0 F Pulse Rate 125 H Respiratory Rate 17 Blood Pressure 128/61 Pulse Oximetry 91 L Intake & Output 03/27/18 03/28/18 03/28/18 18:59 06:59 18:59 Intake Total 2572 / 2572 120 / 120 100 / 100 Balance 2572 / 2572 120 / 120 100 / 100 Weight 72.7 kg Intake: IV 1971 / 1971 100 / 100 NS Inj 1,000 ML @ 150 mls/hr IV 181 / 1811 .CONT .Q6H40M [facility] Rx#:[id number] Rocephin Inj 1,000 MG In NS Inj 100 / 100 100 / 100 100 ML @ 200 mls/hr IV.SIG Q24H [facility] Rx#:[id number] Oral 600 / 600 120 / 120 Other: # Voids 4 2 Date of Last Bowel Movement 03/26/18 03/27/18 # Bowel Movements 4 1 <Samantha Esposito A - Last Filed: 03/28/18 12:54> Results - Labs CBC & Chem 7: 03/27/18 03:55 03/27/18 03:55 Laboratory Results - last 24 hr 03/26/18 03/27/18 03/27/18 13:45 03:55 03:55 WBC 5.5 RBC 2.09 L Hgb 7.4 L D Hct 21.6 L MCV 103.2 H MCH 35.4 H MCHC 34.3 RDW 17.6 H Plt Count 87 L D MPV 9.4 Prelim Diff (Auto) Slide review pending Neut % (Auto) 74.3 H Lymph % (Auto) 12.1 [place] % (Auto) 13.3 H Eos % (Auto) 0.1 Baso % (Auto) 0.2 Neut # (Auto) 4.1 Lymph # (Auto) 0.7 L [place] # (Auto) 0.7 Eos # (Auto) 0.0 Baso # (Auto) 0.0 WBC Differential . Diff Scan Auto diff confirmed Differential Comment . Platelet Estimate Low L Platelet Morphology Normal Sodium 143 Potassium 3.6 D Chloride 110 H Carbon Dioxide 26.8 Anion Gap 6 BUN 32 H Creatinine 1.08 Estimated GFR 67 L Random Glucose 113 H Calcium 7.4 L* D Prot Corrected Calcium 8.4 L Total Bilirubin 1.4 H AST 374 H ALT 126 H Alkaline Phosphatase 190 H Total Protein 5.3 L D Albumin 2.1 L Tumor Marker AFP 24.7 H Microbiology 03/26/18 04:35 Stool Enteric Pathogens (PCR) - Final No enteric pathogens detected by PCR (No Salmonella sp., Shigella sp., Campylobacter sp., Yersinia enterocolitica, Vibrio sp., Norovirus, or EHEC (Shiga Toxin 1 or Shiga Toxin 2) detected. 03/26/18 04:35 Stool Stool for WBCs - Final - Imaging Impressions Liver Ultrasound 03/27/18 00:00 CONCLUSION: 1. Cirrhotic liver with heterogeneity particularly in the anterior segment the right lobe of the liver. An underlying mass cannot be excluded. 2. Portal vein thrombosis. 3. Gallstones. The gallbladder wall is thickened. Gallbladder wall thickening can be associated with inflammatory change and cholecystitis but also with generalized hepatic disease. This finding can be correlated clinically. <Betsy Lorenzana - Last Filed: 03/27/18 14:42> - Labs CBC & Chem 7: 03/28/18 04:14 03/27/18 03:55 Laboratory Results - last 24 hr 03/28/18 04:14 WBC 6.2 RBC 2.07 L Hgb 7.5 L Hct 21.8 L MCV 105.7 H MCH 36.1 H MCHC 34.1 RDW 17.4 H Plt Count 108 L MPV 9.0 Neut % (Auto) 73.9 H Lymph % (Auto) 12.5 [place] % (Auto) 12.9 H Eos % (Auto) 0.4 Baso % (Auto) 0.3 Neut # (Auto) 4.6 Lymph # (Auto) 0.8 L [place] # (Auto) 0.8 Eos # (Auto) 0.0 Baso # (Auto) 0.0 WBC Differential . Differential Comment Auto diff final <Samantha Esposito - Last Filed: 03/28/18 12:54> Assessment and Plan (1) Upper gastrointestinal hemorrhage Status: Acute Code(s): K92.2 - Gastrointestinal hemorrhage, unspecified - Plan This patient is a 73-year-old male who presents to the emergency room today with report of loose stools over the last few days with nausea and vomiting. Patient has history of anxiety and alcohol use. Surgical history includes appendectomy. Patient states that this morning he vomited up dark blood as well as had dark loose stool that he describes as black and tarry. Patient denies abdominal pain, fever or chills. Upon consultation, patient reports 3-week history of projectile diarrhea. Patient states he has been having 6-7 loose stools daily. Patient endorses accompanied nausea and vomiting. Denies any sick contacts or recent travel. States initially noted rectal bleeding was bright red and then turned black and tarry over the last 2 days with noted abdominal distention. Patient denies any abdominal pain. Denies use of blood thinners. States he will take and one Advil monthly as needed for headache. Patient states last EGD and colonoscopy was done 12 years ago without any noted findings. Patient denies any unintended weight loss but does endorse decreased appetite. Patient denies any heartburn or difficulty swallowing. Patient denies any use of tobacco products but does report drinking 3-4 beers every evening with dinner. Patient endorses family history Mom at age 48 from liver cancer. States maternal side of family has increased incidence of liver cancer. Our service has been consulted to evaluate patient for upper GI bleeding; possible need for EGD/colonoscopy Upper GI bleeding /diarrhea Patient endorses hematocrit emesis this a.m. as well as dark tarry stools for the last 2 days. Reports projectile diarrhea 6-7 episodes daily for 3 weeks. 03/25/2018 hemoglobin 10.8 hematocrit 31.9 platelet count 212 INR 1.7 total bilirubin 1.5 AST 76 ALT 37 alk phos 203 03/27/2018 Upper GI bleeding Patient denies hematemesis today. 03/26/2018 EGD: 1. The mucosa of the stomach appeared normal 2. Multiple large ulcers were found in the lower third of the esophagus; biopsies were taken 3. Normal duodenal mucosa in the entire examined duodenum 4. Retroflexion was performed and was normal , no evidence of active or recent bleeding. Diarrhea 1 loose stool noted for today patient states dark brown in color 03/26/2018 colonoscopy: 1. Mild diverticulosis was noted in the sigmoid colon 2. Moderate sized internal hemorrhoids 3. No evidence of active or recent bleeding Hemoglobin 7.4 hematocrit 21.6 Plan -Regular diet -Monitor labs-hemoglobin and hematocrit -Monitor patient for bleeding -Antiemetic as per attending -Pantoprazole 40 mg IV push every 12 hours -Supportive care -Further recommendations to follow This patient has been seen by myself and Dr. Esposito and this note is written on his behalf - Attending Attestation Dr. ESPOSITO <Betsy Lorenzana - Last Filed: 03/27/18 14:42> (1) Upper gastrointestinal hemorrhage Status: Acute Code(s): K92.2 - Gastrointestinal hemorrhage, unspecified - Attending Attestation Agree with above assessment and plan. <Samantha Esposito - Last Filed: 03/28/18 12:54>
--- NOTE | 2018-03-27 16:36 | P.PNIM ---
Subjective Interval history: 73yo m admitted with gib, s/p EGD/Colonoscopy this morning found to have multiple esophageal ulcers. 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 Imaging Imaging: Impressions Liver Ultrasound 03/27/18 00:00 CONCLUSION: 1. Cirrhotic liver with heterogeneity particularly in the anterior segment the right lobe of the liver. An underlying mass cannot be excluded. 2. Portal vein thrombosis. 3. Gallstones. The gallbladder wall is thickened. Gallbladder wall thickening can be associated with inflammatory change and cholecystitis but also with generalized hepatic disease. This finding can be correlated clinically. Assessment and Plan (1) Upper gastrointestinal hemorrhage: Code(s): K92.2 - Gastrointestinal hemorrhage, unspecified Status: Acute Plan -ACUTE UPPER GIB due to esophageal ulcers - cont ppi IV bid, no nsaids or ac for now -ANEMIA of acute blood loss due to above, may need transfusion if hbg 7or less, -CIRRHOSIS with PORTAL THROMBOSIS, possible LIVER MASS R LOBE w ascites abundant - start lasix, aldactone if tolerated, needs follow up w gi, fluid restriction when stable, AFP 24 fu w GI -ROGER w azotemia due to ugib - monitor renal function, start on lasix for ascites and then aldactone pending k level -ANXIETY /SIMI - cont home meds -ETOH ABUSE - DT protocol, thiamine, folate, cessation counseling, social consult -DVT prophylaxis - scds only, due to hemorrhage -GENERALIZED WEAKNESS- PT EVAL recommends home w HHC when stable. -DISPOSITION home w c when stable. Progress Note: Quality VTE Deep Vein Thrombosis/Pulmonary Embolism Present on Admission: No
[2018-03-28 05:08] LABS: Baso % (Auto) 0.3 % (0.0-2.0); Eos % (Auto) 0.4 % (0.0-4.0); Hematocrit 21.8 % (39.0-51.0); Hemoglobin 7.5 gm/dL (13.0-17.0); Lymph # (Auto) 0.8 th/mm3 (1.0-4.8); Lymph % (Auto) 12.5 % (9.0-44.0); Mean Corpuscular HGB Conc 34.1 % (32.0-36.0); Mean Corpuscular Hemoglobin 36.1 pg (27.0-34.0); Mean Corpuscular Volume 105.7 fL (80.0-100.0); Mono # (Auto) 0.8 th/mm3 (0.0-0.9); Mono % (Auto) 12.9 % (0.0-8.0); Neut # (Auto) 4.6 th/mm3 (1.8-7.7); Neut % (Auto) 73.9 % (16.0-70.0); Platelet Count 108 th/mm3 (150-450); Red Blood Count 2.07 mil/mm3 (4.50-5.90); Red Cell Distribution Width 17.4 % (11.6-17.2); White Blood Count 6.2 th/mm3 (4.0-11.0)
[2018-03-28] MEDS: Furosemide 20 MG Tablet PO SCH ×2 (08:29→11:35)
[2018-03-28] MEDS: Folic Acid 1 MG Tablet PO SCH (08:29)
[2018-03-28] MEDS: Pantoprazole Inj 40 MG Vial IV.PUSH SCH (11:37)
[2018-03-28] MEDS ORDERED: Loperamide 2 MG Capsule PO PRN (11:48)
--- NOTE | 2018-03-28 13:49 | P.PNIM ---
Subjective Interval history: 73yo m admitted with gib, s/p EGD/Colonoscopy yesterday found to have multiple esophageal ulcers. pt seen and examined doing fair states hes having more diarrhea again, no bleeding, no nv, no fever, no sob or cp, tolerating diet feels too weak to get oob today Physical Exam Vital signs: Last Vital Signs Temp 98.0 F 03/28/18 08:00 Pulse 125 H 03/28/18 08:00 Resp 17 03/28/18 08:00 BP 128/61 03/28/18 08:00 Pulse Ox 91 L 03/28/18 08:00 Intake & Output 03/26/18 03/27/18 03/28/18 03/29/18 06:59 06:59 06:59 06:59 Intake Total 1989 2692 / 2692 100 / 100 Output Total 125 / 125 Balance 1864 2692 / 2692 100 / 100 Weight 67.6 kg 69.1 kg 72.7 kg chronically ill appearing 73yo wm aaox3 nad pleasant heart s1s2 reg lungs clear no wrr abd soft nondt pos bs ext no edema r ankle club deformity, venous congestive discoloration Results Labs CBC & Chem 7: 03/28/18 04:14 03/27/18 03:55 Imaging Imaging: ABD US:1. Cirrhotic liver with heterogeneity particularly in the anterior segment the right lobe of the liver. An underlying mass cannot be excluded.2. Portal vein thrombosis.3. Gallstones. The gallbladder wall is thickened. Gallbladder wall thickening can be associated with inflammatory change and cholecystitis but also with generalized hepatic disease. This finding can be correlated clinically. Assessment and Plan (1) Upper gastrointestinal hemorrhage: Code(s): K92.2 - Gastrointestinal hemorrhage, unspecified Status: Acute Plan -ACUTE UPPER GIB due to esophageal ulcers - cont ppi IV bid, no nsaids or ac for now -ANEMIA of acute blood loss due to above, may need transfusion if hbg 7or less, currently hgb at 7.5 no further drop, will monitor and check iron studies -CIRRHOSIS with PORTAL THROMBOSIS, possible LIVER MASS R LOBE w ascites abundant - start lasix, aldactone if tolerated, when stable needs follow up w gi, fluid restriction when stable, AFP 24 fu w GI -ROGER w azotemia due to ugib - monitor renal function, start on lasix for ascites and then aldactone pending k level -ANXIETY /SIMI - cont home meds -ETOH ABUSE - DT protocol, no signs of wd so far, thiamine, folate, cessation counseling, social consult -DVT prophylaxis - scds only, due to hemorrhage -GENERALIZED WEAKNESS- PT EVAL recommends home w HHC when stable. -DIARRHEA - chronic, needs fu w gi, imodium for now -DISPOSITION home w hhc when stable hopefully tomorrow if stable Progress Note: Quality VTE Deep Vein Thrombosis/Pulmonary Embolism Present on Admission: No
--- NOTE | 2018-03-28 14:30 | P.PNGI ---
Subjective Interval history: Patient laying supine in bed Reporting decreased appetite Endorses intermittent generalized abdominal pain <Betsy Lorenzana - Last Filed: 03/28/18 14:30> Physical Exam Vital signs: Vital Signs 03/27/18 16:00 03/27/18 20:00 03/28/18 00:00 Temperature 98.9 F 99 F 99 F Pulse Rate 124 H 121 H 135 H Respiratory Rate 17 22 22 Blood Pressure 109/57 L 111/56 L 110/53 L Pulse Oximetry 92 L 92 L 92 L 03/28/18 08:00 03/28/18 12:00 Temperature 98.0 F 98.3 F Pulse Rate 125 H 97 H Respiratory Rate 17 18 Blood Pressure 128/61 117/55 L Pulse Oximetry 91 L 93 L Intake & Output 03/27/18 03/28/18 03/28/18 18:59 06:59 18:59 Intake Total 2572 / 2572 120 / 120 100 / 100 Balance 2572 / 2572 120 / 120 100 / 100 Weight 72.7 kg Intake: IV 1971 / 1971 100 / 100 NS Inj 1,000 ML @ 150 mls/hr IV 1812 / 1812 .CONT .Q6H40M [facility] Rx#:[id number] Rocephin Inj 1,000 MG In NS Inj 100 / 100 100 / 100 100 ML @ 200 mls/hr IV.SIG Q24H [facility] Rx#:[id number] Oral 600 / 600 120 / 120 Other: # Voids 4 2 Date of Last Bowel Movement 03/26/18 03/27/18 # Bowel Movements 4 1 - Constitutional no acute distress, chronically ill appearing - Routine HEENT Exam Head: Present: normocephalic - Routine Respiratory Exam Present: CTA bilaterally - Routine Abdominal Exam Present: soft, normoactive bowel sounds, tenderness, distended. Absent: guarding, firm Comments: Right upper quadrant abdominal pain and tenderness on palpation during exam - Routine Skin Exam Present: dry, warm - Routine Neurological Exam Present: alert - Routine Psychiatric Exam Present: normal affect, cooperative <Betsy Lorenzana - Last Filed: 03/28/18 14:30> Vital signs: Vital Signs 03/28/18 20:00 03/29/18 00:00 03/29/18 08:00 Temperature 98.5 F 98.1 F 98.2 F Pulse Rate 136 H 92 H 128 H Respiratory Rate 22 22 19 Blood Pressure 127/68 111/58 L 120/60 Pulse Oximetry 95 94 L 93 L 03/29/18 12:00 03/29/18 14:58 03/29/18 15:14 Temperature 98.5 F 98.1 F 98.4 F Pulse Rate 94 H 96 H 95 H Respiratory Rate 19 17 17 Blood Pressure 110/56 L 113/58 L 110/56 L Pulse Oximetry 93 L 95 95 03/29/18 15:55 Temperature 98.1 F Pulse Rate 96 H Respiratory Rate 18 Blood Pressure 113/58 L Pulse Oximetry 94 L Intake & Output 03/28/18 03/29/18 03/29/18 18:59 06:59 18:59 Intake Total 475 / 475 480 / 480 0 / 0 Balance 475 / 475 480 / 480 0 / 0 Weight 73 kg Intake: IV 100 / 100 Rocephin Inj 1,000 MG In NS Inj 100 / 100 100 ML @ 200 mls/hr IV.SIG Q24H [facility] Rx#:[id number] Oral 375 / 375 480 / 480 Intake (Blood Product) Amt 0 / 0 Rbc As-3 Leukoreduced Unit 0 / 0 [id number] Other: # Voids 5 2 Date of Last Bowel Movement 03/27/18 03/29/18 # Bowel Movements 6 <Samantha Huynh A - Last Filed: 03/29/18 17:27> Results - Labs CBC & Chem 7: 03/28/18 04:14 03/27/18 03:55 Laboratory Results - last 24 hr 03/28/18 04:14 WBC 6.2 RBC 2.07 L Hgb 7.5 L Hct 21.8 L MCV 105.7 H MCH 36.1 H MCHC 34.1 RDW 17.4 H Plt Count 108 L MPV 9.0 Neut % (Auto) 73.9 H Lymph % (Auto) 12.5 [place] % (Auto) 12.9 H Eos % (Auto) 0.4 Baso % (Auto) 0.3 Neut # (Auto) 4.6 Lymph # (Auto) 0.8 L [place] # (Auto) 0.8 Eos # (Auto) 0.0 Baso # (Auto) 0.0 WBC Differential . Differential Comment Auto diff final <Betsy Lorenzana - Last Filed: 03/28/18 14:30> - Labs CBC & Chem 7: 03/29/18 04:51 03/29/18 04:51 Laboratory Results - last 24 hr 03/29/18 03/29/18 03/29/18 04:51 04:51 09:56 WBC 5.6 RBC 1.98 L Hgb 7.0 L Hct 20.5 L* MCV 103.1 H MCH 35.5 H MCHC 34.4 RDW 17.0 Plt Count 118 L MPV 8.7 Prelim Diff (Auto) Community Development Director Neut % (Auto) 70.3 H Lymph % (Auto) 15.8 [place] % (Auto) 12.2 H Eos % (Auto) 1.3 Baso % (Auto) 0.4 Neut # (Auto) 3.9 Lymph # (Auto) 0.9 L [place] # (Auto) 0.7 Eos # (Auto) 0.1 Baso # (Auto) 0.0 WBC Differential . Differential Comment Auto diff final Sodium 138 Potassium 3.5 Chloride 106 Carbon Dioxide 25.6 Anion Gap 6 BUN 21 H Creatinine 0.93 Estimated GFR 80 L Random Glucose 90 Calcium 7.2 L* Prot Corrected Calcium 8.1 L Magnesium 1.9 Total Bilirubin 1.3 H AST 103 H ALT 62 Alkaline Phosphatase 179 H Total Protein 5.5 L Albumin 1.9 L Blood Type O Positive Antibody Screen Negative MTS Gel Crossmatch See Detail Microbiology 03/26/18 04:35 Stool Cryptosporidium Antigen - Final Negative - No Cryptosporicium antigen detected In selected cases of patients with a history of immunosuppression or foreign travel, a full ova and parasites examination may be desired. Contact the microbiology lab if full workup is indicated and subit another specimen for testing. 03/26/18 04:35 Stool Giardia Antigen ([place]) - Final Negative - No Giardia Antigen detected In selected cases of patients with a history of immunosuppression or foreign travel, a full ova and parasites examination may be desired. Contact the microbiology lab if full workup is indicated and subit another specimen for testing. - Imaging Impressions Chest X-Ray 03/29/18 13:23 CONCLUSION: Diffuse interstitial prominence differential considerations would include chronic interstitial changes versus mild CHF. There is no pleural effusion. <Samantha Huynh - Last Filed: 03/29/18 17:27> Assessment and Plan (1) Upper gastrointestinal hemorrhage Status: Acute Code(s): K92.2 - Gastrointestinal hemorrhage, unspecified - Plan This patient is a 73-year-old male who presents to the emergency room today with report of loose stools over the last few days with nausea and vomiting. Patient has history of anxiety and alcohol use. Surgical history includes appendectomy. Patient states that this morning he vomited up dark blood as well as had dark loose stool that he describes as black and tarry. Patient denies abdominal pain, fever or chills. Upon consultation, patient reports 3-week history of projectile diarrhea. Patient states he has been having 6-7 loose stools daily. Patient endorses accompanied nausea and vomiting. Denies any sick contacts or recent travel. States initially noted rectal bleeding was bright red and then turned black and tarry over the last 2 days with noted abdominal distention. Patient denies any abdominal pain. Denies use of blood thinners. States he will take and one Advil monthly as needed for headache. Patient states last EGD and colonoscopy was done 12 years ago without any noted findings. Patient denies any unintended weight loss but does endorse decreased appetite. Patient denies any heartburn or difficulty swallowing. Patient denies any use of tobacco products but does report drinking 3-4 beers every evening with dinner. Patient endorses family history Mom at age 48 from liver cancer. States maternal side of family has increased incidence of liver cancer. Our service has been consulted to evaluate patient for upper GI bleeding; possible need for EGD/colonoscopy Upper GI bleeding /diarrhea Patient endorses hematocrit emesis this a.m. as well as dark tarry stools for the last 2 days. Reports projectile diarrhea 6-7 episodes daily for 3 weeks. 03/25/2018 hemoglobin 10.8 hematocrit 31.9 platelet count 212 INR 1.7 total bilirubin 1.5 AST 76 ALT 37 alk phos 203 03/27/2018 Upper GI bleeding Patient denies hematemesis today. 03/26/2018 EGD: 1. The mucosa of the stomach appeared normal 2. Multiple large ulcers were found in the lower third of the esophagus; biopsies were taken 3. Normal duodenal mucosa in the entire examined duodenum 4. Retroflexion was performed and was normal , no evidence of active or recent bleeding. Diarrhea 1 loose stool noted for today patient states dark brown in color 03/26/2018 colonoscopy: 1. Mild diverticulosis was noted in the sigmoid colon 2. Moderate sized internal hemorrhoids 3. No evidence of active or recent bleeding Hemoglobin 7.4 hematocrit 21.6 03/28/2018 Upper GI bleeding Patient denies hematemesis. No reported bleeding Hemoglobin 7.5 hematocrit 21.8 Diarrhea Patient reports one loose stool this a.m. with no noted bleeding. Denies abdominal cramping. 03/27/2018 liver ultrasound revealed the following findings-- 1. Cirrhotic liver with heterogeneity particularly in the anterior segment the right lobe of the liver. An underlying mass cannot be excluded. 2. Portal vein thrombosis. 3. Gallstones. The gallbladder wall is thickened. Gallbladder wall thickening can be associated with inflammatory change and cholecystitis but also with generalized hepatic disease. This finding can be correlated clinically. Plan -Regular diet as tolerated -Monitor labs-hemoglobin and hematocrit -Monitor patient for bleeding -Antiemetic as per attending -Biopsies pending -Pantoprazole 40 mg IV push every 12 hours -Patient agrees to follow-up with GI post discharge-liver mass -Supportive care -Further recommendations to follow This patient has been seen by myself and Dr. Huynh and this note is written on his behalf - Attending Attestation Dr. Huynh <Betsy Lorenzana - Last Filed: 03/28/18 14:30> (1) Upper gastrointestinal hemorrhage Status: Acute Code(s): K92.2 - Gastrointestinal hemorrhage, unspecified - Attending Attestation Agree with above assessment and plan. Biopsies pending. Further recommendations to follow. <Samantha Huynh - Last Filed: 03/29/18 17:27>
--- NOTE | 2018-03-28 15:36 | P.DCO ---
Diagnosis (1) Upper gastrointestinal hemorrhage: Status: Acute Case Management Consult Case Management Consult-Home Health: Yes I have seen patient Lele Mitchell on 03/28/18. My clinical findings support the need for the requested home health care services because: due to his condition and generalized weakness PT bassem recommended home PT I certify that my clinical findings support that this patient is homebound because: inability to ambulate without assist of walker limited endurance due to deconditioning and weakness
--- NOTE | 2018-03-28 15:39 | P.PNIM ---
Subjective Interval history: 73yo m admitted with gib, s/p EGD/Colonoscopy found to have multiple esophageal ulcers. pt seen and examined doing fair but still co very weak and difficulty ambulating due to weakness. Physical Exam Vital signs: Last Vital Signs Temp 98.3 F 03/28/18 12:00 Pulse 97 H 03/28/18 12:00 Resp 18 03/28/18 12:00 BP 117/55 L 03/28/18 12:00 Pulse Ox 93 L 03/28/18 12:00 Intake & Output 03/26/18 03/27/18 03/28/18 03/29/18 06:59 06:59 06:59 06:59 Intake Total 1989 2692 / 2692 100 / 100 Output Total 125 / 125 Balance 1864 / 2691 100 / 100 Weight 67.6 kg 69.1 kg 72.7 kg Results Labs CBC & Chem 7: 03/28/18 04:14 03/27/18 03:55 Assessment and Plan (1) Upper gastrointestinal hemorrhage: Code(s): K92.2 - Gastrointestinal hemorrhage, unspecified Status: Acute Plan -ACUTE UPPER GIB due to esophageal ulcers - cont ppi IV bid, no nsaids or ac for now -ANEMIA of acute blood loss due to above, may need transfusion if hbg 7or less, currently hgb at 7.5 no further drop, will monitor and check iron studies -CIRRHOSIS with PORTAL THROMBOSIS, possible LIVER MASS R LOBE w ascites abundant - start lasix, aldactone if tolerated, when stable needs follow up w gi, fluid restriction when stable, AFP 24 fu w GI -ROGER w azotemia due to ugib - monitor renal function, start on lasix for ascites and then aldactone pending k level -ANXIETY /SIMI - cont home meds -ETOH ABUSE - DT protocol, no signs of wd so far, thiamine, folate, cessation counseling, social consult -DVT prophylaxis - scds only, due to hemorrhage -GENERALIZED WEAKNESS- PT EVAL recommends home w HHC when stable. -DIARRHEA - chronic, needs fu w gi, imodium for now -DISPOSITION home w hhc when stable hopefully tomorrow if stable Progress Note: Quality VTE Deep Vein Thrombosis/Pulmonary Embolism Present on Admission: No
[2018-03-28 17:14] LABS: % Iron Saturation 5.7 % (20-50)
[2018-03-28] MEDS: Spironolactone 25 MG Tablet PO SCH (17:33)
--- NOTE | 2018-03-28 18:34 | P.PN ---
Subjective Interval history: NOT seen Physical Exam Vital signs: Vital Signs 03/27/18 20:00 03/28/18 00:00 03/28/18 08:00 Temperature 99 F 99 F 98.0 F Pulse Rate 121 H 135 H 125 H Respiratory Rate 22 22 17 Blood Pressure 111/56 L 110/53 L 128/61 Pulse Oximetry 92 L 92 L 91 L 03/28/18 12:00 03/28/18 16:00 Temperature 98.3 F 97.8 F Pulse Rate 97 H 130 H Respiratory Rate 18 17 Blood Pressure 117/55 L 128/63 Pulse Oximetry 93 L 94 L Intake & Output 03/27/18 03/28/18 03/28/18 18:59 06:59 18:59 Intake Total 2572 / 2572 120 / 120 475 / 475 Balance 2572 / 2572 120 / 120 475 / 475 Weight 72.7 kg Intake: IV 1971 100 / 100 NS Inj 1,000 ML @ 150 mls/hr IV 1812 / 1812 .CONT .[id number] [facility] Rx#:[id number] Rocephin Inj 1,000 MG In NS Inj 100 / 100 100 / 100 100 ML @ 200 mls/hr IV.SIG Q24H [facility] Rx#:[id number] Oral 600 / 600 120 / 120 375 / 375 Other: # Voids 4 2 5 Date of Last Bowel Movement 03/26/18 03/27/18 # Bowel Movements 4 1 6 Narrative: chronically ill appearing 73yo wm aaox3 nad pleasant heart s1s2 reg lungs clear no wrr abd soft nondt pos bs ext no edema r ankle club deformity, venous congestive discoloration Results - Labs CBC & Chem 7: 03/28/18 04:14 03/27/18 03:55 Laboratory Results - last 24 hr 03/28/18 03/28/18 04:14 16:35 WBC 6.2 RBC 2.07 L Hgb 7.5 L Hct 21.8 L MCV 105.7 H MCH 36.1 H MCHC 34.1 RDW 17.4 H Plt Count 108 L MPV 9.0 Neut % (Auto) 73.9 H Lymph % (Auto) 12.5 Porter % (Auto) 12.9 H Eos % (Auto) 0.4 Baso % (Auto) 0.3 Neut # (Auto) 4.6 Lymph # (Auto) 0.8 L [place] # (Auto) 0.8 Eos # (Auto) 0.0 Baso # (Auto) 0.0 WBC Differential . Differential Comment Auto diff final Iron 11 L TIBC 195 L % Saturation 5.7 L - Imaging ITS Impressions Abdomen/Pelvis CT 03/26/18 00:02 CONCLUSION: 1. Cirrhotic liver with stigmata of portal hypertension. Liver masses including dominant right lobe mass worrisome for hepatocellular carcinoma. Portal vein thrombosis. 2. Abundant ascites with omental thickening which is nonspecific. Liver Ultrasound 03/27/18 00:00 CONCLUSION: 1. Cirrhotic liver with heterogeneity particularly in the anterior segment the right lobe of the liver. An underlying mass cannot be excluded. 2. Portal vein thrombosis. 3. Gallstones. The gallbladder wall is thickened. Gallbladder wall thickening can be associated with inflammatory change and cholecystitis but also with generalized hepatic disease. This finding can be correlated clinically. - Procedures EGD and cscope Assessment and Plan - Assessment (1) Upper gastrointestinal hemorrhage Code(s): K92.2 - Gastrointestinal hemorrhage, unspecified Status: Acute - Plan -ACUTE UPPER GIB due to esophageal ulcers - cont ppi bid, no nsaids or ac for now -Iron def ANEMIA of acute blood loss due to above, may need transfusion if hbg 7or less, will monitor and startfe -CIRRHOSIS with PORTAL THROMBOSIS, possible LIVER MASS R LOBE w ascites abundant - ct lasix, aldactone if tolerated, when stable needs follow up w gi, fluid restriction when stable, AFP 24 fu w GI consider BB -ROGER w azotemia due to ugib - monitor renal function -ANXIETY /SIMI - cont home meds -ETOH ABUSE - DT protocol, no signs of wd so far, thiamine, folate, cessation counseling, social consult -DVT prophylaxis - scds only, due to hemorrhage -GENERALIZED WEAKNESS- PT EVAL recommends home w HHC when stable. -DIARRHEA - chronic, needs fu w gi, imodium for now Discharge Planning: home w hhc when stable
[2018-03-29 06:45] LABS: Baso % (Auto) 0.4 % (0.0-2.0); Eos # (Auto) 0.1 th/mm3 (0.0-0.4); Eos % (Auto) 1.3 % (0.0-4.0); Lymph # (Auto) 0.9 th/mm3 (1.0-4.8); Lymph % (Auto) 15.8 % (9.0-44.0); Mean Corpuscular HGB Conc 34.4 % (32.0-36.0); Mean Corpuscular Hemoglobin 35.5 pg (27.0-34.0); Mean Corpuscular Volume 103.1 fL (80.0-100.0); Mean Platelet Volume 8.7 fL (7.0-11.0); Mono # (Auto) 0.7 th/mm3 (0.0-0.9); Mono % (Auto) 12.2 % (0.0-8.0); Neut # (Auto) 3.9 th/mm3 (1.8-7.7); Neut % (Auto) 70.3 % (16.0-70.0); Platelet Count 118 th/mm3 (150-450); Red Blood Count 1.98 mil/mm3 (4.50-5.90); White Blood Count 5.6 th/mm3 (4.0-11.0)
[2018-03-29 06:51] LABS: Hematocrit 20.5 % (39.0-51.0)
[2018-03-29 07:12] LABS: Albumin 1.9 g/dL (3.4-5.0); Calcium 7.2 mg/dL (8.5-10.1); Carbon Dioxide 25.6 meq/L (21.0-32.0); Magnesium 1.9 mg/dL (1.5-2.5); Potassium 3.5 meq/L (3.5-5.1); Total Protein 5.5 g/dL (6.4-8.2)
[2018-03-29] MEDS ORDERED: Sodium Chlor 0.9% Inj 250 ML IV.SIG SCH (08:00)
[2018-03-29] MEDS: Ferrous Sulfate 325 MG Tablet PO SCH (09:18)
[2018-03-29] MEDS: Folic Acid 1 MG Tablet PO SCH (09:21)
[2018-03-29] MEDS: Spironolactone 25 MG Tablet PO SCH ×2 (09:21→18:27)
--- NOTE | 2018-03-29 13:29 | P.PN ---
Subjective Interval history: Follow-up GI bleed, anemia and diarrhea. States he is feeling better than yesterday. Had epigastric pain after eating. He also feels weak and dizzy when he gets up. History of diarrhea for the past 3 weeks had 4 loose stools yesterday. History of C. difficile. Physical Exam Vital signs: Vital Signs 03/28/18 16:00 03/28/18 20:00 03/29/18 00:00 Temperature 97.8 F 98.5 F 98.1 F Pulse Rate 130 H 136 H 92 H Respiratory Rate 17 22 22 Blood Pressure 128/63 127/68 111/58 L Pulse Oximetry 94 L 95 94 L 03/29/18 08:00 03/29/18 12:00 Temperature 98.2 F 98.5 F Pulse Rate 128 H 94 H Respiratory Rate 19 19 Blood Pressure 120/60 110/56 L Pulse Oximetry 93 L 93 L Intake & Output 03/28/18 03/29/18 03/29/18 18:59 06:59 18:59 Intake Total 475 / 475 480 / 480 Balance 475 / 475 480 / 480 Weight 73 kg Intake: IV 100 / 100 Rocephin Inj 1,000 MG In NS Inj 100 / 100 100 ML @ 200 mls/hr IV.SIG Q24H [facility] Rx#:[id number] Oral 375 / 375 480 / 480 Other: # Voids 5 2 Date of Last Bowel Movement 03/27/18 03/27/18 # Bowel Movements 6 Narrative: chronically ill appearing 73yo wm aaox3 nad pleasant heart s1s2 tachycardic lungs clear no wrr abd soft nondt pos bs ext bilateral pitting edema r ankle club deformity, venous congestive discoloration Skin warm no lesions Results - Labs CBC & Chem 7: 03/29/18 04:51 03/29/18 04:51 Laboratory Results - last 24 hr 03/28/18 03/29/18 03/29/18 16:35 04:51 04:51 WBC 5.6 RBC 1.98 L Hgb 7.0 L Hct 20.5 L* MCV 103.1 H MCH 35.5 H MCHC 34.4 RDW 17.0 Plt Count 118 L MPV 8.7 Prelim Diff (Auto) Correspondence Renew Clerk Neut % (Auto) 70.3 H Lymph % (Auto) 15.8 Ramsey % (Auto) 12.2 H Eos % (Auto) 1.3 Baso % (Auto) 0.4 Neut # (Auto) 3.9 Lymph # (Auto) 0.9 L Ramsey # (Auto) 0.7 Eos # (Auto) 0.1 Baso # (Auto) 0.0 WBC Differential . Differential Comment Auto diff final Sodium 138 Potassium 3.5 Chloride 106 Carbon Dioxide 25.6 Anion Gap 6 BUN 21 H Creatinine 0.93 Estimated GFR 80 L Random Glucose 90 Calcium 7.2 L* Prot Corrected Calcium 8.1 L Magnesium 1.9 Iron 11 L TIBC 195 L % Saturation 5.7 L Total Bilirubin 1.3 H AST 103 H ALT 62 Alkaline Phosphatase 179 H Total Protein 5.5 L Albumin 1.9 L Blood Type Antibody Screen MTS Gel Crossmatch 03/29/18 09:56 WBC RBC Hgb Hct MCV MCH MCHC RDW Plt Count MPV Prelim Diff (Auto) Neut % (Auto) Lymph % (Auto) Ramsey % (Auto) Eos % (Auto) Baso % (Auto) Neut # (Auto) Lymph # (Auto) Ramsey # (Auto) Eos # (Auto) Baso # (Auto) WBC Differential Differential Comment Sodium Potassium Chloride Carbon Dioxide Anion Gap BUN Creatinine Estimated GFR Random Glucose Calcium Prot Corrected Calcium Magnesium Iron TIBC % Saturation Total Bilirubin AST ALT Alkaline Phosphatase Total Protein Albumin Blood Type O Positive Antibody Screen Negative MTS Gel Crossmatch See Detail - Imaging ITS Impressions Abdomen/Pelvis CT 03/26/18 00:02 CONCLUSION: 1. Cirrhotic liver with stigmata of portal hypertension. Liver masses including dominant right lobe mass worrisome for hepatocellular carcinoma. Portal vein thrombosis. 2. Abundant ascites with omental thickening which is nonspecific. Liver Ultrasound 03/27/18 00:00 CONCLUSION: 1. Cirrhotic liver with heterogeneity particularly in the anterior segment the right lobe of the liver. An underlying mass cannot be excluded. 2. Portal vein thrombosis. 3. Gallstones. The gallbladder wall is thickened. Gallbladder wall thickening can be associated with inflammatory change and cholecystitis but also with generalized hepatic disease. This finding can be correlated clinically. - Procedures EGD and cscope Assessment and Plan - Assessment (1) Upper gastrointestinal hemorrhage Code(s): K92.2 - Gastrointestinal hemorrhage, unspecified Status: Acute - Plan -ACUTE UPPER GIB due to esophageal ulcers - cont ppi bid, no nsaids or ac for now. Antireflux mechanisms discussed with the patient -Iron def ANEMIA of acute blood loss due to above, may need transfusion if hbg 7 or less, will monitor and start fe. Patient is symptomatic we will transfuse 2 units with Lasix repeat CBC in the morning -CIRRHOSIS with PORTAL THROMBOSIS, possible LIVER MASS R LOBE w ascites abundant - ct lasix, aldactone if tolerated, when stable needs follow up w gi, fluid restriction when stable, AFP 24 fu w GI consider BB -ROGER w azotemia due to ugib - monitor renal function. Improved -ANXIETY /SIMI - cont home meds -ETOH ABUSE - DT protocol, no signs of wd so far, thiamine, folate, cessation counseling, social consult -DVT prophylaxis - scds only, due to hemorrhage -GENERALIZED WEAKNESS- PT EVAL recommends home w HHC when stable. -DIARRHEA - chronic, needs fu w gi, abdominal CT and stool studies negative so far will order C. difficile history of C. difficile. Start Lactinex Discharge Planning: home w hhc when stable possibly in the morning
--- NOTE | 2018-03-29 13:51 | XR ---
EXAM DATE: 03/29/2018 1:47 PM EST AGE/SEX: 73 years / Male INDICATIONS: Congestive heart failure. Patient complains of dizziness and weakness. CLINICAL DATA: This is the patient's subsequent encounter. Patient reports that signs and symptoms h ave been present for 4 - 6 days and indicates a pain score of 0/10. MEDICAL/SURGICAL HISTORY: None. Appendectomy. COMPARISON: No prior exams available for comparison. FINDINGS: The heart is at the upper limits of normal in size. There is diffuse interstitial prominence which may be chronic in etiology. There is no pleural effusi on. The bony structures visualized are grossly intact. CONCLUSION: Diffuse interstitial prominence differential considerations would include chronic interstitial change s versus mild CHF. There is no pleural effusion. Electronically signed by: Cristiano Atkins MD 03/29/2018 1:50 PM EST
--- NOTE | 2018-03-29 16:41 | P.PNGI ---
Subjective Interval history: Patient laying supine in bed awake and alert 1 unit packed RBCs infusing Patient denies any obvious bleeding Denies any vomiting Reports loose stools, states had 4 loose stools yesterday <Betsy Lorenzana - Last Filed: 03/29/18 16:35> Physical Exam Vital signs: Vital Signs 03/28/18 20:00 03/29/18 00:00 03/29/18 08:00 Temperature 98.5 F 98.1 F 98.2 F Pulse Rate 136 H 92 H 128 H Respiratory Rate 22 22 19 Blood Pressure 127/68 111/58 L 120/60 Pulse Oximetry 95 94 L 93 L 03/29/18 12:00 03/29/18 14:58 03/29/18 15:14 Temperature 98.5 F 98.1 F 98.4 F Pulse Rate 94 H 96 H 95 H Respiratory Rate 19 17 17 Blood Pressure 110/56 L 113/58 L 110/56 L Pulse Oximetry 93 L 95 95 03/29/18 15:55 Temperature 98.1 F Pulse Rate 96 H Respiratory Rate 18 Blood Pressure 113/58 L Pulse Oximetry 94 L Intake & Output 03/28/18 03/29/18 03/29/18 18:59 06:59 18:59 Intake Total 475 / 475 480 / 480 0 / 0 Balance 475 / 475 480 / 480 0 / 0 Weight 73 kg Intake: IV 100 / 100 Rocephin Inj 1,000 MG In NS Inj 100 / 100 100 ML @ 200 mls/hr IV.SIG Q24H [facility] Rx#:[id number] Oral 375 / 375 480 / 480 Intake (Blood Product) Amt 0 / 0 Rbc As-3 Leukoreduced Unit 0 / 0 [id number] Other: # Voids 5 2 Date of Last Bowel Movement 03/27/18 03/29/18 # Bowel Movements 6 - Constitutional no acute distress, chronically ill appearing - Routine HEENT Exam Head: Present: normocephalic - Routine Abdominal Exam Present: soft, normoactive bowel sounds, distended. Absent: tenderness, guarding, firm - Routine Skin Exam Present: dry, pallor, warm - Routine Neurological Exam Present: alert - Routine Psychiatric Exam Present: normal affect, cooperative <Betsy Lorenzana - Last Filed: 03/29/18 16:35> Vital signs: Vital Signs 03/28/18 20:00 03/29/18 00:00 03/29/18 08:00 Temperature 98.5 F 98.1 F 98.2 F Pulse Rate 136 H 92 H 128 H Respiratory Rate 22 22 19 Blood Pressure 127/68 111/58 L 120/60 Pulse Oximetry 95 94 L 93 L 03/29/18 12:00 03/29/18 14:58 03/29/18 15:14 Temperature 98.5 F 98.1 F 98.4 F Pulse Rate 94 H 96 H 95 H Respiratory Rate 19 17 17 Blood Pressure 110/56 L 113/58 L 110/56 L Pulse Oximetry 93 L 95 95 03/29/18 15:55 Temperature 98.1 F Pulse Rate 96 H Respiratory Rate 18 Blood Pressure 113/58 L Pulse Oximetry 94 L Intake & Output 03/28/18 03/29/18 03/29/18 18:59 06:59 18:59 Intake Total 475 / 475 480 / 480 0 / 0 Balance 475 / 475 480 / 480 0 / 0 Weight 73 kg Intake: IV 100 / 100 Rocephin Inj 1,000 MG In NS Inj 100 / 100 100 ML @ 200 mls/hr IV.SIG Q24H [facility] Rx#:[id number] Oral 375 / 375 480 / 480 Intake (Blood Product) Amt 0 / 0 Rbc As-3 Leukoreduced Unit 0 / 0 [id number] Other: # Voids 5 2 Date of Last Bowel Movement 03/27/18 03/29/18 # Bowel Movements 6 <Samantha Huynh A - Last Filed: 03/29/18 17:28> Results - Labs CBC & Chem 7: 03/29/18 04:51 03/29/18 04:51 Laboratory Results - last 24 hr 03/28/18 03/29/18 03/29/18 16:35 04:51 04:51 WBC 5.6 RBC 1.98 L Hgb 7.0 L Hct 20.5 L* MCV 103.1 H MCH 35.5 H MCHC 34.4 RDW 17.0 Plt Count 118 L MPV 8.7 Prelim Diff (Auto) Research Study Assistant Neut % (Auto) 70.3 H Lymph % (Auto) 15.8 [place] % (Auto) 12.2 H Eos % (Auto) 1.3 Baso % (Auto) 0.4 Neut # (Auto) 3.9 Lymph # (Auto) 0.9 L [place] # (Auto) 0.7 Eos # (Auto) 0.1 Baso # (Auto) 0.0 WBC Differential . Differential Comment Auto diff final Sodium 138 Potassium 3.5 Chloride 106 Carbon Dioxide 25.6 Anion Gap 6 BUN 21 H Creatinine 0.93 Estimated GFR 80 L Random Glucose 90 Calcium 7.2 L* Prot Corrected Calcium 8.1 L Magnesium 1.9 Iron 11 L TIBC 195 L % Saturation 5.7 L Total Bilirubin 1.3 H AST 103 H ALT 62 Alkaline Phosphatase 179 H Total Protein 5.5 L Albumin 1.9 L Blood Type Antibody Screen MTS Gel Crossmatch 03/29/18 09:56 WBC RBC Hgb Hct MCV MCH MCHC RDW Plt Count MPV Prelim Diff (Auto) Neut % (Auto) Lymph % (Auto) [place] % (Auto) Eos % (Auto) Baso % (Auto) Neut # (Auto) Lymph # (Auto) [place] # (Auto) Eos # (Auto) Baso # (Auto) WBC Differential Differential Comment Sodium Potassium Chloride Carbon Dioxide Anion Gap BUN Creatinine Estimated GFR Random Glucose Calcium Prot Corrected Calcium Magnesium Iron TIBC % Saturation Total Bilirubin AST ALT Alkaline Phosphatase Total Protein Albumin Blood Type O Positive Antibody Screen Negative MTS Gel Crossmatch See Detail Microbiology 03/26/18 04:35 Stool Cryptosporidium Antigen - Final Negative - No Cryptosporicium antigen detected In selected cases of patients with a history of immunosuppression or foreign travel, a full ova and parasites examination may be desired. Contact the microbiology lab if full workup is indicated and subit another specimen for testing. 03/26/18 04:35 Stool Giardia Antigen ([place]) - Final Negative - No Giardia Antigen detected In selected cases of patients with a history of immunosuppression or foreign travel, a full ova and parasites examination may be desired. Contact the microbiology lab if full workup is indicated and subit another specimen for testing. - Imaging Impressions Chest X-Ray 03/29/18 13:23 CONCLUSION: Diffuse interstitial prominence differential considerations would include chronic interstitial changes versus mild CHF. There is no pleural effusion. <Betsy Lorenzana - Last Filed: 03/29/18 16:35> - Labs CBC & Chem 7: 03/29/18 04:51 03/29/18 04:51 Laboratory Results - last 24 hr 03/29/18 03/29/1818 04:51 04:51 09:56 WBC 5.6 RBC 1.98 L Hgb 7.0 L Hct 20.5 L* MCV 103.1 H MCH 35.5 H MCHC 34.4 RDW 17.0 Plt Count 118 L MPV 8.7 Prelim Diff (Auto) Research Study Assistant Neut % (Auto) 70.3 H Lymph % (Auto) 15.8 [place] % (Auto) 12.2 H Eos % (Auto) 1.3 Baso % (Auto) 0.4 Neut # (Auto) 3.9 Lymph # (Auto) 0.9 L [place] # (Auto) 0.7 Eos # (Auto) 0.1 Baso # (Auto) 0.0 WBC Differential . Differential Comment Auto diff final Sodium 138 Potassium 3.5 Chloride 106 Carbon Dioxide 25.6 Anion Gap 6 BUN 21 H Creatinine 0.93 Estimated GFR 80 L Random Glucose 90 Calcium 7.2 L* Prot Corrected Calcium 8.1 L Magnesium 1.9 Total Bilirubin 1.3 H AST 103 H ALT 62 Alkaline Phosphatase 179 H Total Protein 5.5 L Albumin 1.9 L Blood Type O Positive Antibody Screen Negative MTS Gel Crossmatch See Detail Microbiology 03/26/18 04:35 Stool Cryptosporidium Antigen - Final Negative - No Cryptosporicium antigen detected In selected cases of patients with a history of immunosuppression or foreign travel, a full ova and parasites examination may be desired. Contact the microbiology lab if full workup is indicated and subit another specimen for testing. 03/26/18 04:35 Stool Giardia Antigen ([place]) - Final Negative - No Giardia Antigen detected In selected cases of patients with a history of immunosuppression or foreign travel, a full ova and parasites examination may be desired. Contact the microbiology lab if full workup is indicated and subit another specimen for testing. - Imaging Impressions Chest X-Ray 03/29/18 13:23 CONCLUSION: Diffuse interstitial prominence differential considerations would include chronic interstitial changes versus mild CHF. There is no pleural effusion. <Samantha Huynh - Last Filed: 03/29/18 17:28> Assessment and Plan (1) Upper gastrointestinal hemorrhage Status: Acute Code(s): K92.2 - Gastrointestinal hemorrhage, unspecified - Plan This patient is a 73-year-old male who presents to the emergency room today with report of loose stools over the last few days with nausea and vomiting. Patient has history of anxiety and alcohol use. Surgical history includes appendectomy. Patient states that this morning he vomited up dark blood as well as had dark loose stool that he describes as black and tarry. Patient denies abdominal pain, fever or chills. Upon consultation, patient reports 3-week history of projectile diarrhea. Patient states he has been having 6-7 loose stools daily. Patient endorses accompanied nausea and vomiting. Denies any sick contacts or recent travel. States initially noted rectal bleeding was bright red and then turned black and tarry over the last 2 days with noted abdominal distention. Patient denies any abdominal pain. Denies use of blood thinners. States he will take and one Advil monthly as needed for headache. Patient states last EGD and colonoscopy was done 12 years ago without any noted findings. Patient denies any unintended weight loss but does endorse decreased appetite. Patient denies any heartburn or difficulty swallowing. Patient denies any use of tobacco products but does report drinking 3-4 beers every evening with dinner. Patient endorses family history Mom at age 48 from liver cancer. States maternal side of family has increased incidence of liver cancer. Our service has been consulted to evaluate patient for upper GI bleeding; possible need for EGD/colonoscopy Upper GI bleeding /diarrhea Patient endorses hematocrit emesis this a.m. as well as dark tarry stools for the last 2 days. Reports projectile diarrhea 6-7 episodes daily for 3 weeks. 03/25/2018 hemoglobin 10.8 hematocrit 31.9 platelet count 212 INR 1.7 total bilirubin 1.5 AST 76 ALT 37 alk phos 203 03/27/2018 Upper GI bleeding Patient denies hematemesis today. 03/26/2018 EGD: 1. The mucosa of the stomach appeared normal 2. Multiple large ulcers were found in the lower third of the esophagus; biopsies were taken 3. Normal duodenal mucosa in the entire examined duodenum 4. Retroflexion was performed and was normal , no evidence of active or recent bleeding. Diarrhea 1 loose stool noted for today patient states dark brown in color 03/26/2018 colonoscopy: 1. Mild diverticulosis was noted in the sigmoid colon 2. Moderate sized internal hemorrhoids 3. No evidence of active or recent bleeding Hemoglobin 7.4 hematocrit 21.6 03/28/2018 Upper GI bleeding Patient denies hematemesis. No reported bleeding Hemoglobin 7.5 hematocrit 21.8 Diarrhea Patient reports one loose stool this a.m. with no noted bleeding. Denies abdominal cramping. 03/27/2018 liver ultrasound revealed the following findings-- 1. Cirrhotic liver with heterogeneity particularly in the anterior segment the right lobe of the liver. An underlying mass cannot be excluded. 2. Portal vein thrombosis. 3. Gallstones. The gallbladder wall is thickened. Gallbladder wall thickening can be associated with inflammatory change and cholecystitis but also with generalized hepatic disease. This finding can be correlated clinically. 03/29/2018 Patient denies hematemesis or noted blood in stool. No noted obvious bleeding Hemoglobin 7.0 hematocrit 20.5-1 of 2 units of packed RBCs being transfused Patient reports intermittent abdominal cramping. States he had 3-4 loose stools yesterday C. difficile specimen pending. Stool studies negative Plan -Regular diet -Monitor labs -Monitor patient for bleeding -Transfuse as needed -C. difficile-pending -Antiemetic as per attending -Pantoprazole 40 mg IV push every 12 hours -Supportive care -Further recommendations to follow This patient has been seen by myself and Dr. Huynh and this note is written on his behalf - Attending Attestation Dr. Huynh <Betsy Lorenzana - Last Filed: 03/29/18 16:35> (1) Upper gastrointestinal hemorrhage Status: Acute Code(s): K92.2 - Gastrointestinal hemorrhage, unspecified - Attending Attestation Agree with above assessment and plan. Further recommendations to follow. <Samantha Huynh - Last Filed: 03/29/18 17:28>
[2018-03-29] MEDS: Lactobacillus Acidophilus/L. Spores Tablet PO SCH (18:24)
[2018-03-30 05:25] LABS: Baso % (Auto) 0.3 % (0.0-2.0); Eos # (Auto) 0.2 th/mm3 (0.0-0.4); Eos % (Auto) 3.2 % (0.0-4.0); Hematocrit 26.9 % (39.0-51.0); Hemoglobin 9.4 gm/dL (13.0-17.0); Lymph # (Auto) 0.9 th/mm3 (1.0-4.8); Lymph % (Auto) 15.8 % (9.0-44.0); Mean Corpuscular HGB Conc 34.9 % (32.0-36.0); Mean Corpuscular Hemoglobin 34.7 pg (27.0-34.0); Mean Corpuscular Volume 99.4 fL (80.0-100.0); Mean Platelet Volume 8.1 fL (7.0-11.0); Mono # (Auto) 0.7 th/mm3 (0.0-0.9); Mono % (Auto) 12.6 % (0.0-8.0); Neut # (Auto) 3.9 th/mm3 (1.8-7.7); Neut % (Auto) 68.1 % (16.0-70.0); Platelet Count 145 th/mm3 (150-450); Red Cell Distribution Width 18.3 % (11.6-17.2); White Blood Count 5.7 th/mm3 (4.0-11.0)
[2018-03-30 05:57] LABS: Albumin 1.8 g/dL (3.4-5.0); Calcium 7.1 mg/dL (8.5-10.1); Carbon Dioxide 25.5 meq/L (21.0-32.0); Potassium 3.6 meq/L (3.5-5.1); Total Protein 5.7 g/dL (6.4-8.2)
[2018-03-30] MEDS ORDERED: Furosemide 20 MG Tablet PO SCH (09:00)
[2018-03-30] MEDS: Lactobacillus Acidophilus/L. Spores Tablet PO SCH ×3 (09:32→17:26)
[2018-03-30] MEDS: Folic Acid 1 MG Tablet PO SCH (09:32)
[2018-03-30] MEDS: Ferrous Sulfate 325 MG Tablet PO SCH (09:32)
[2018-03-30] MEDS: Spironolactone 25 MG Tablet PO SCH ×2 (09:35→17:26)
[2018-03-30] MEDS ORDERED: Potassium Bicarbonate 25 MEQ Effervescent Tablet PO ONE (11:00)
--- NOTE | 2018-03-30 13:14 | P.PN ---
Subjective Interval history: Follow-up diarrhea and cirrhosis. Continues to have loose stools. Also reports of abdominal distention denies abdominal pain. Positive weight gain Physical Exam Vital signs: Vital Signs 03/29/18 14:58 03/29/18 15:14 03/29/18 15:55 Temperature 98.1 F 98.4 F 98.1 F Pulse Rate 96 H 95 H 96 H Respiratory Rate 17 17 18 Blood Pressure 113/58 L 110/56 L 113/58 L Pulse Oximetry 95 95 94 L 03/29/18 18:41 03/29/18 18:55 03/29/18 20:00 Temperature 98.5 F 98.5 F Pulse Rate 96 H 97 H 96 H Respiratory Rate 18 18 17 Blood Pressure 110/52 L 103/52 L 103/52 L Pulse Oximetry 95 94 L 95 03/29/18 22:00 03/30/18 00:00 03/30/18 08:00 Temperature 98.2 F 97.7 F 97.3 F L Pulse Rate 85 87 88 Respiratory Rate 18 17 18 Blood Pressure 105/54 L 115/59 L 115/57 L Pulse Oximetry 95 94 L 97 03/30/18 12:00 Temperature 97.2 F L Pulse Rate 93 H Respiratory Rate 18 Blood Pressure 114/64 Pulse Oximetry 95 Intake & Output 03/29/18 03/30/18 03/30/18 18:59 06:59 18:59 Intake Total 745 / 745 480 / 480 Balance 745 / 745 480 / 480 Weight 74.3 kg Intake: IV 80 / 80 NS Inj 250 ML @ 15 mls/hr IV. 80 / 80 SIG ONCE MARY Rx#:[id number] Oral 720 / 720 Other Rbc As-3 Leukoreduced Unit [id number] Intake (Blood Product) Amt 0 / 0 400 / 400 Rbc As-3 Leukoreduced Unit 0 / 0 [id number] Rbc As-3 Leukoreduced Unit 400 / 400 [id number] Other: # Voids 3 5 Date of Last Bowel Movement 03/29/18 03/30/18 03/30/18 # Bowel Movements 2 Narrative: chronically ill appearing 73yo wm aaox3 nad pleasant heart s1s2 tachycardic lungs clear no wrr abd soft nondt pos bs ext bilateral pitting edema r ankle club deformity, venous congestive discoloration Skin warm no lesions Results - Labs CBC & Chem 7: 03/30/18 05:13 03/30/18 05:13 Laboratory Results - last 24 hr 03/29/18 03/30/18 03/30/18 09:56 00:00 05:13 WBC 5.7 RBC 2.70 L Hgb 9.4 L D Hct 26.9 L MCV 99.4 D MCH 34.7 H MCHC 34.9 RDW 18.3 H Plt Count 145 L MPV 8.1 Neut % (Auto) 68.1 Lymph % (Auto) 15.8 [place] % (Auto) 12.6 H Eos % (Auto) 3.2 Baso % (Auto) 0.3 Neut # (Auto) 3.9 Lymph # (Auto) 0.9 L [place] # (Auto) 0.7 Eos # (Auto) 0.2 Baso # (Auto) 0.0 WBC Differential . Differential Comment Auto diff final Sodium Potassium Chloride Carbon Dioxide Anion Gap BUN Creatinine Estimated GFR Random Glucose Calcium Calcium Adj for Albumin Magnesium Total Bilirubin AST ALT Alkaline Phosphatase Total Protein Albumin Stl C.difficile DNA Amp Negative St C. diff Tox Epid 027 Negative Blood Type O Positive Antibody Screen Negative MTS Gel Crossmatch See Detail 03/30/18 05:13 WBC RBC Hgb Hct MCV MCH MCHC RDW Plt Count MPV Neut % (Auto) Lymph % (Auto) [place] % (Auto) Eos % (Auto) Baso % (Auto) Neut # (Auto) Lymph # (Auto) [place] # (Auto) Eos # (Auto) Baso # (Auto) WBC Differential Differential Comment Sodium 140 Potassium 3.6 Chloride 108 H Carbon Dioxide 25.5 Anion Gap 7 BUN 19 H Creatinine 0.93 Estimated GFR 80 L Random Glucose 93 Calcium 7.1 L* Calcium Adj for Albumin 7.8 L Magnesium 2.0 Total Bilirubin 2.5 H AST 65 H ALT 51 Alkaline Phosphatase 196 H Total Protein 5.7 L Albumin 1.8 L Stl C.difficile DNA Amp St C. diff Tox Epid 027 Blood Type Antibody Screen MTS Gel Crossmatch Microbiology 03/26/18 04:35 Stool Cryptosporidium Antigen - Final Negative - No Cryptosporicium antigen detected In selected cases of patients with a history of immunosuppression or foreign travel, a full ova and parasites examination may be desired. Contact the microbiology lab if full workup is indicated and subit another specimen for testing. 11/23/18 04:35 Stool Giardia Antigen ([place]) - Final Negative - No Giardia Antigen detected In selected cases of patients with a history of immunosuppression or foreign travel, a full ova and parasites examination may be desired. Contact the microbiology lab if full workup is indicated and subit another specimen for testing. - Imaging Impressions Chest X-Ray 03/29/18 13:23 CONCLUSION: Diffuse interstitial prominence differential considerations would include chronic interstitial changes versus mild CHF. There is no pleural effusion. - Procedures EGD and colonoscopy Assessment and Plan - Assessment (1) Upper gastrointestinal hemorrhage Code(s): K92.2 - Gastrointestinal hemorrhage, unspecified Status: Acute - Plan -ACUTE UPPER GIB due to esophageal ulcers - cont ppi bid, no nsaids or ac for now. Antireflux mechanisms discussed with the patient -Iron def ANEMIA of acute blood loss due to above, may need transfusion if hbg 7 or less, will monitor and start fe. Improved status post 2 unit packed RBC transfusion -CIRRHOSIS with PORTAL THROMBOSIS, possible LIVER MASS R LOBE w ascites abundant - ct lasix, aldactone if tolerated, when stable needs follow up w gi, fluid restriction when stable, AFP 24 fu w GI consider BB. Because of increasing ascites and weight gain, will switch to IV Lasix -ROGER w azotemia due to ugib - monitor renal function. Improved -ANXIETY /SIMI - cont home meds -ETOH ABUSE - DT protocol, no signs of wd so far, thiamine, folate, cessation counseling, social consult -DVT prophylaxis - scds only, due to hemorrhage -GENERALIZED WEAKNESS- PT EVAL recommends home w HHC when stable. -DIARRHEA - chronic, needs fu w gi, abdominal CT and stool studies negative continue Lactinex and add Questran Palliative care consult to clarify goals of care
--- NOTE | 2018-03-30 15:36 | P.PNGI ---
Subjective Interval history: Resting in the bed seems to be more comfortable on his right side Decreased appetite but no acute nausea vomiting and no shortness of breath <RicardoDanita Gilda - Last Filed: 03/30/18 15:44> Physical Exam Vital signs: Vital Signs 03/29/18 15:55 03/29/18 18:41 03/29/18 18:55 Temperature 98.1 F 98.5 F Pulse Rate 96 H 96 H 97 H Respiratory Rate 18 18 18 Blood Pressure 113/58 L 110/52 L 103/52 L Pulse Oximetry 94 L 95 94 L 03/29/18 20:00 03/29/18 22:00 03/30/18 00:00 Temperature 98.5 F 98.2 F 97.7 F Pulse Rate 96 H 85 87 Respiratory Rate 17 18 17 Blood Pressure 103/52 L 105/54 L 115/59 L Pulse Oximetry 95 95 94 L 03/30/18 08:00 03/30/18 12:00 Temperature 97.3 F L 97.2 F L Pulse Rate 88 93 H Respiratory Rate 18 18 Blood Pressure 115/57 L 114/64 Pulse Oximetry 97 95 Intake & Output 03/29/18 03/30/18 03/30/18 18:59 06:59 18:59 Intake Total 745 / 745 480 / 480 Balance 745 / 745 480 / 480 Weight 74.3 kg Intake: IV 80 / 80 NS Inj 250 ML @ 15 mls/hr IV. 80 / 80 SIG ONCE MARY Rx#:[id number] Oral 720 / 720 Other Rbc As-3 Leukoreduced Unit [id number] Intake (Blood Product) Amt 0 / 0 400 / 400 Rbc As-3 Leukoreduced Unit 0 / 0 [id number] Rbc As-3 Leukoreduced Unit 400 / 400 [id number] Other: # Voids 3 5 Date of Last Bowel Movement 03/29/18 03/30/18 03/30/18 # Bowel Movements 2 - Constitutional moderate distress, cachectic, chronically ill appearing, cooperative - Routine HEENT Exam Eye: Present: conjunctival icterus ENT: Present: mucous membranes dry - Routine Respiratory Exam Present: decreased breath sounds - Routine Cardiovascular Exam Present: S1 (Diminished breath sounds but no obvious wheezing or rhonchi), S2 - Routine Abdominal Exam Present: distended (Distant moderate distention soft bowel sounds, abdomen taut) - Routine Extremities Exam Present: edema (Lower extremity trace) - Routine Skin Exam Present: pallor, jaundice - Routine Neurological Exam Present: alert <Danita Silva - Last Filed: 03/30/18 15:44> Vital signs: Vital Signs 03/30/18 16:00 03/30/18 20:00 03/31/18 00:00 Temperature 97.9 F 98.1 F 97.7 F Pulse Rate 113 H 113 H 92 H Respiratory Rate 18 17 17 Blood Pressure 115/72 117/65 112/61 Pulse Oximetry 95 94 L 91 L 03/31/18 08:00 03/31/18 12:00 Temperature 97.6 F 97.9 F Pulse Rate 113 H 93 H Respiratory Rate 17 17 Blood Pressure 139/70 129/60 Pulse Oximetry 97 94 L Intake & Output 03/30/18 03/31/18 03/31/18 18:59 06:59 18:59 Intake Total 900 / 900 Balance 900 / 900 Weight 73.4 kg Intake: Oral 900 / 900 Other: # Voids 3 Date of Last Bowel Movement 03/30/18 03/31/18 # Bowel Movements 3 <Samantha Huynh - Last Filed: 03/31/18 14:32> Results - Labs CBC & Chem 7: 03/30/18 05:13 03/30/18 05:13 Laboratory Results - last 24 hr 03/29/18 03/30/18 03/30/18 09:56 00:00 05:13 WBC 5.7 RBC 2.70 L Hgb 9.4 L D Hct 26.9 L MCV 99.4 D MCH 34.7 H MCHC 34.9 RDW 18.3 H Plt Count 145 L MPV 8.1 Neut % (Auto) 68.1 Lymph % (Auto) 15.8 [place] % (Auto) 12.6 H Eos % (Auto) 3.2 Baso % (Auto) 0.3 Neut # (Auto) 3.9 Lymph # (Auto) 0.9 L [place] # (Auto) 0.7 Eos # (Auto) 0.2 Baso # (Auto) 0.0 WBC Differential . Differential Comment Auto diff final Sodium Potassium Chloride Carbon Dioxide Anion Gap BUN Creatinine Estimated GFR Random Glucose Calcium Calcium Adj for Albumin Magnesium Total Bilirubin AST ALT Alkaline Phosphatase Total Protein Albumin Stl C.difficile DNA Amp Negative St C. diff Tox Epid 027 Negative Blood Type O Positive Antibody Screen Negative MTS Gel Crossmatch See Detail 03/30/18 05:13 WBC RBC Hgb Hct MCV MCH MCHC RDW Plt Count MPV Neut % (Auto) Lymph % (Auto) [place] % (Auto) Eos % (Auto) Baso % (Auto) Neut # (Auto) Lymph # (Auto) [place] # (Auto) Eos # (Auto) Baso # (Auto) WBC Differential Differential Comment Sodium 140 Potassium 3.6 Chloride 108 H Carbon Dioxide 25.5 Anion Gap 7 BUN 19 H Creatinine 0.93 Estimated GFR 80 L Random Glucose 93 Calcium 7.1 L* Calcium Adj for Albumin 7.8 L Magnesium 2.0 Total Bilirubin 2.5 H AST 65 H ALT 51 Alkaline Phosphatase 196 H Total Protein 5.7 L Albumin 1.8 L Stl C.difficile DNA Amp St C. diff Tox Epid 027 Blood Type Antibody Screen MTS Gel Crossmatch Microbiology 03/26/18 04:35 Stool Cryptosporidium Antigen - Final Negative - No Cryptosporicium antigen detected In selected cases of patients with a history of immunosuppression or foreign travel, a full ova and parasites examination may be desired. Contact the microbiology lab if full workup is indicated and subit another specimen for testing. 03/26/18 04:35 Stool Giardia Antigen ([place]) - Final Negative - No Giardia Antigen detected In selected cases of patients with a history of immunosuppression or foreign travel, a full ova and parasites examination may be desired. Contact the microbiology lab if full workup is indicated and subit another specimen for testing. <Danita Silva - Last Filed: 03/30/18 15:44> - Labs CBC & Chem 7: 03/31/18 04:26 03/31/18 04:26 Laboratory Results - last 24 hr 03/31/18 03/31/18 04:26 04:26 WBC 6.0 RBC 2.73 L Hgb 9.3 L Hct 27.2 L MCV 99.7 MCH 34.2 H MCHC 34.3 RDW 18.4 H Plt Count 167 MPV 8.2 Neut % (Auto) 68.6 Lymph % (Auto) 14.9 [place] % (Auto) 12.5 H Eos % (Auto) 3.6 Baso % (Auto) 0.4 Neut # (Auto) 4.1 Lymph # (Auto) 0.9 L [place] # (Auto) 0.8 Eos # (Auto) 0.2 Baso # (Auto) 0.0 WBC Differential . Differential Comment Auto diff final Sodium 139 Potassium 3.6 Chloride 107 Carbon Dioxide 25.5 Anion Gap 7 BUN 19 H Creatinine 0.91 Estimated GFR 82 L Random Glucose 104 Calcium 7.2 L* Calcium Adj for Albumin 9.0 Magnesium 2.1 Albumin 1.8 L <Samantha Huynh - Last Filed: 03/31/18 14:32> Assessment and Plan (1) Upper gastrointestinal hemorrhage Status: Acute Code(s): K92.2 - Gastrointestinal hemorrhage, unspecified - Plan This patient is a 73-year-old male who presents to the emergency room today with report of loose stools over the last few days with nausea and vomiting. Patient has history of anxiety and alcohol use. Surgical history includes appendectomy. Patient states that this morning he vomited up dark blood as well as had dark loose stool that he describes as black and tarry. Patient denies abdominal pain, fever or chills. Upon consultation, patient reports 3-week history of projectile diarrhea. Patient states he has been having 6-7 loose stools daily. Patient endorses accompanied nausea and vomiting. Denies any sick contacts or recent travel. States initially noted rectal bleeding was bright red and then turned black and tarry over the last 2 days with noted abdominal distention. Patient denies any abdominal pain. Denies use of blood thinners. States he will take and one Advil monthly as needed for headache. Patient states last EGD and colonoscopy was done 12 years ago without any noted findings. Patient denies any unintended weight loss but does endorse decreased appetite. Patient denies any heartburn or difficulty swallowing. Patient denies any use of tobacco products but does report drinking 3-4 beers every evening with dinner. Patient endorses family history Mom at age 48 from liver cancer. States maternal side of family has increased incidence of liver cancer. Our service has been consulted to evaluate patient for upper GI bleeding; possible need for EGD/colonoscopy Upper GI bleeding /diarrhea Patient endorses hematocrit emesis this a.m. as well as dark tarry stools for the last 2 days. Reports projectile diarrhea 6-7 episodes daily for 3 weeks. 03/25/2018 hemoglobin 10.8 hematocrit 31.9 platelet count 212 INR 1.7 total bilirubin 1.5 AST 76 ALT 37 alk phos 203 03/27/2018 Upper GI bleeding Patient denies hematemesis today. 03/26/2018 EGD: 1. The mucosa of the stomach appeared normal 2. Multiple large ulcers were found in the lower third of the esophagus; biopsies were taken 3. Normal duodenal mucosa in the entire examined duodenum 4. Retroflexion was performed and was normal , no evidence of active or recent bleeding. Diarrhea 1 loose stool noted for today patient states dark brown in color 03/26/2018 colonoscopy: 1. Mild diverticulosis was noted in the sigmoid colon 2. Moderate sized internal hemorrhoids 3. No evidence of active or recent bleeding Hemoglobin 7.4 hematocrit 21.6 03/28/2018 Upper GI bleeding Patient denies hematemesis. No reported bleeding Hemoglobin 7.5 hematocrit 21.8 Diarrhea Patient reports one loose stool this a.m. with no noted bleeding. Denies abdominal cramping. 03/27/2018 liver ultrasound revealed the following findings-- 1. Cirrhotic liver with heterogeneity particularly in the anterior segment the right lobe of the liver. An underlying mass cannot be excluded. 2. Portal vein thrombosis. 3. Gallstones. The gallbladder wall is thickened. Gallbladder wall thickening can be associated with inflammatory change and cholecystitis but also with generalized hepatic disease. This finding can be correlated clinically. 03/29/2018 Patient denies hematemesis or noted blood in stool. No noted obvious bleeding Hemoglobin 7.0 hematocrit 20.5-1 of 2 units of packed RBCs being transfused Patient reports intermittent abdominal cramping. States he had 3-4 loose stools yesterday C. difficile specimen pending. Stool studies negative 03/30/2018, patient noting no abdominal pain but moderate distention secondary to cirrhotic liver possible underlying mass. Facial cover very pale with some icterus. Encourage patient to sit up in bed and monitor for any acute or increased shortness of breath. Paracentesis only when symptomatic. Current hemoglobin 9.4 status post transfusion. Discussed with patient discharge planning and he is requesting case management some possible assistance currently patient has been living at home and caring for his elderly father. Recommend palliative care assistance if patient is willing and possible hospice care. C. difficile stool negative, encouraged alcohol abstinence. No in hospital procedures recommended at this time will be glad to follow patient on an outpatient basis. Plan Diet as tolerated encourage patient to eat small amounts and hydrate as much as possible Monitor labs with special attention to hemoglobin Bowel regimen as needed Alcohol abstinence Probiotics PPI Pain management per attending patient states he has no PCP. Consider case management to work with discharge planning Consider palliative care assistance Patient was seen per myself and Dr. Huynh, note was written on his behalf <Danita Silva - Last Filed: 03/30/18 15:44> (1) Upper gastrointestinal hemorrhage Status: Acute Code(s): K92.2 - Gastrointestinal hemorrhage, unspecified - Attending Attestation Seen and examined, plan as above. Will follow up with you. <Samantha Huynh - Last Filed: 03/31/18 14:32>
--- NOTE | 2018-03-30 17:35 | P.CONPAL ---
Consult Service: Palliative Care Requesting Physician: Oscar Bryan Reason for Consult: a. To assist with evaluation and management of symptoms including: fatigue, n/v b. To assist medical decision maker(s) with: better understanding of current medical conditions; weighing benefits/burdens of medical treatment options; making medical treatment decisions. Primary Care Provider: No Primary Care Physician History of Present Illness History of Present Illness: 73-year-old male presented to the ED on 03/25/18 with complaints of diarrhea for several weeks and vomiting for a few days with hematemesis the night before and the day of presentation. He also reported dark diarrhea. He also reports palpitations. Denied abdominal pain. * Stool occult heme positive in the ED. Started on Protonix. H&H stable at presentation 10.8/31.9. Platelets 212. BUN 53, creatinine 1.41. GFR 49. PT 16.9, INR 1.7. Admitted for further evaluation and management. * GI consulted: Abdomen pelvis CT noting cirrhotic liver with stigmata of portal hypertension. Liver masses identified including right dominant lobe mass worrisome for hepatocellular carcinoma. Portal vein thrombosis noted. Abundant ascites. Patient reports drinking 3-4 beers every day with dinner. Also with family history of mother at age 48 from liver cancer. Plan for EGD and colonoscopy. Supportive care. * 03/26 EGD w BX: 1. The mucosa of the stomach appeared normal 2. Multiple large ulcers were found in the lower third of the esophagus; biopsies were taken 3. Normal duodenal mucosa in the entire examined duodenum * 03/26 Colonoscopy 1. Mild diverticulosis was noted in the sigmoid colon 2. Moderate sized internal hemorrhoids 3. No evidence of active or recent bleeding * 03/28 AFP 24, started on lasix, aldactone, planned for out pt f/up w GI. PT eval = pt weak, recommended for HHC when stable. D/c planning for possible home in another day w C. Cont to have diarrhea. started lactinex, cdif neg * 03/29 anemic, transfused 1 U RBC for hgb 7/hct 20.5. No obvious signs of bleeding. discharge planning notes pt lives at home and cares for his elderly father, he requested assistance for guidance/assistance. GI rec palliative consult, consider hospice. * 03/30 palliative care consulted to assist with clarification of goals of medical treatment. seen in room as he is finishing clear liq dinner. Alert, pleasant, articulate man. Oriented and appropriate. Able to report his hospital course pretty accurately. Explore with him medical, psychosocial history. He endorses generally being of good health overall and not really needing regular medical care. Versus reflux symptoms on and off for years. He endorses in the past several weeks having significant diarrhea and vomiting but not actually realizing how sick he was until he was actually here in the hospital. He lives at home with his 98-year old father whom he assists as needed. He has no other living family. He has a neighbor whom he communicates with but otherwise no other close family/friends. He is not sure who he would designate as a decision maker he feels like it should not be his father because his father may become incapacitated. He indicates he does not know anyone else he would designate, does not know who would help his father if he becomes sicker and deteriorates. Exploration of GI findings, possible liver mass, and concerns of liver disease will continue to progress. Further explore that he is currently very stable and not imminently dying however likely liver dysfunction will continue and he will likely experience limited life expectancy. He voices understanding. He indicates should he be felt to have liver cancer he would not want chemotherapy or anything like that. He indicates that that time that he would want palliative treatment only. He does voice willingness at this point to follow- up outpatient with GI as well as establish a general medical provider to try to maintain his health at its current state. Exploration of CPR he requests DNR status as he feels that would do him no good at this point in his life. Exploration of hospice to manage progression of liver disease process and associated symptoms when he is at the point where he does not wish to follow-up further with GI for additional treatment, management. He does have complex psychosocial terms of tablet she can contact with resources to help him set up his affairs for his father etc. palliative will plan to return tomorrow morning to discuss further with case management, as well as to determine other community/social resources to connect him with. Function/Cognitive Trajectory: Lives at home with his 98-year-old father. No cognitive deficits reported. Independent with ADL. Generalized weakness and fatigue over the past several weeks. Review of Systems Constitutional: Reports fatigue, Reports lack of energy, Denies anorexia, Denies body ache(s), Denies headache(s) Ears, Nose, Mouth, and Throat: Denies mouth lesions, Denies mouth pain, Denies nasal congestion, Denies sore throat Cardiovascular: Reports leg swelling, Reports shortness of breath with activity , Denies chest pain Respiratory: Reports shortness of breath with activity, Denies chest congestion , Denies cough Gastrointestinal: Reports black, tarry stools, Reports bloating, Reports cramping, Reports loose stools, Reports vomiting, Reports vomiting blood, Reports other (Heartburn/reflux), Denies difficulty swallowing, Denies pain with swallowing Genitourinary: Denies blood in urine, Denies difficulty urinating Musculoskeletal: Denies back pain, Denies joint pain Skin/Breast: Denies new lesions, Denies rash Neurologic: Denies headache(s), Denies memory loss Psychiatric: Reports anxiety PMFSH - History History Provided By: Patient - Medical History Medical History: Medical History (Last Updated 03/30/18 @ 18:26 by SHANTHI Edmonds) Acid reflux Anxiety - Surgical History Surgical History: Surgical History (Last Reviewed 03/30/18 @ 08:49 by Sharon Patino) Hx of appendectomy - Family History Family History: Family History (Last Updated 03/30/18 @ 18:25 by SHANTHI Edmonds) Mother Liver cancer Uncle Liver cancer - Social History I have reviewed the patient's Social History: Yes - Tobacco History Second Hand Smoke Exposure: No Tobacco Use In Past 30 Days: No Smoking Status: Former smoker - Alcohol History How Often Do You Have a Drink Containing Alcohol: 4 or more times a week (3-4 beers a day, when "young" drank heavily) - Substance Use History Substance History: No History of Abuse - Travel History History of Recent Travel: No Recent Travel in the [place] Within the Last 8 Weeks: No Recent Travel Out of the Country Within the Last 8 Weeks: No - Immunization History Tetanus Immunization: Unsure Hx Influenza Vaccine This Season: No Medications and Allergies Active Medications: Active Medications Acetaminophen (Tylenol) 650 mg PO Q4H PRN PRN Reason: Headache, fever, pain 1-4 Al Hydroxide/Mg Hydroxide (Milk Of Magnesia Liq) 30 ml PO Q12H PRN PRN Reason: Mild Constipation Alprazolam (Xanax) 1 mg PO BID PRN PRN Reason: Anxiety Bisacodyl (Dulcolax Supp) 10 mg RECTAL DAILY PRN PRN Reason: SEVERE CONSITIPATION Buspirone HCl (Buspar) 5 mg PO BID PRN PRN Reason: Anxiety Cholestyramine Resin (Questran 4 Gm Pkt) 4 gm PO BID [facility] Ferrous Sulfate (Ferosul) 325 mg PO DAILY [facility] Last Admin: 03/30/18 09:32 Dose: 325 mg Folic Acid (Folic Acid) 1 mg PO DAILY [facility] Last Admin: 03/30/18 09:32 Dose: 1 mg Furosemide (Lasix Inj) 20 mg IV.PUSH BID@0900,1800 [facility] Lactobacillus Acidophilus (Lactinex) 1 tab PO TID [facility] Last Admin: 03/30/18 12:18 Dose: 1 tab Lactulose (Lactulose Liq) 30 ml PO DAILY PRN PRN Reason: SEVERE CONSITIPATION Ondansetron HCl (Zofran Inj) 4 mg IV.PUSH Q6H PRN PRN Reason: NAUSEA OR VOMITING Pantoprazole Sodium (Protonix) 40 mg PO BID [facility] Last Admin: 03/30/18 09:32 Dose: 40 mg Potassium Chloride (K-Dur) 20 meq PO DAILY [facility] Last Admin: 03/30/18 09:33 Dose: 20 meq Sennosides (Senokot) 17.2 mg PO Q12H PRN PRN Reason: Moderate Constipation Sodium Chloride (Ns Flush) 2 ml IV.FLUSH PRN PRN PRN Reason: FLUSH AFTER USING IV ACCESS Last Admin: 03/25/18 10:26 Dose: 2 ml Spironolactone (Aldactone) 25 mg PO BID@0900,1800 [facility] Last Admin: 03/30/18 09:35 Dose: 25 mg Thiamine HCl (Vitamin B1) 100 mg PO BID [facility] Last Admin: 03/30/18 09:33 Dose: 100 mg Allergies Allergy/AdvReac Type Severity Reaction Status Date / Time No Known Allergies Allergy Verified 03/25/18 09:48 Home Medications Medication Instructions Recorded Confirmed Type alprazolam 1 mg PO BID PRN 03/25/18 03/25/18 History buspirone 5 mg PO BID PRN 03/25/18 03/25/18 History Advance Directives Living Will: No Healthcare Surrogate: No Power of [employer] [place]: No Ethical and Legal Issues: Patient currently alert oriented and able to make his own decisions. He indicates his only living family is his 98-year-old father. He has no other close friends or others whom he could entrust with medical decision making, POA etc. He wishes to talk further with case management, healthcare social worker regarding what he needs to do to get his affairs in order. Physical Exam Vital Signs: Vital Signs - 24 hr 03/29/18 18:41 03/29/18 18:55 03/29/18 20:00 Temperature 98.5 F 98.5 F Pulse Rate 96 H 97 H 96 H Respiratory Rate 18 18 17 Blood Pressure 110/52 L 103/52 L 103/52 L Pulse Oximetry 95 94 L 95 03/29/18 22:00 03/30/18 00:00 03/30/18 08:00 Temperature 98.2 F 97.7 F 97.3 F L Pulse Rate 85 87 88 Respiratory Rate 18 17 18 Blood Pressure 105/54 L 115/59 L 115/57 L Pulse Oximetry 95 94 L 97 03/30/18 12:00 Temperature 97.2 F L Pulse Rate 93 H Respiratory Rate 18 Blood Pressure 114/64 Pulse Oximetry 95 I&O: Intake & Output 03/28/18 03/29/18 03/30/18 03/31/18 06:59 06:59 06:59 06:59 Intake Total 2692 / 2692 955 / 955 1225 / 1225 Balance 2692 / 2692 955 / 955 1225 / 1225 Weight 72.7 kg 73 kg 74.3 kg Physical Exam: CONSTITUTIONAL/GENERAL: This is an adequately nourished patient, alert, pleasant TUBES/LINES/DRAINS: Peripheral IV upper extremity. SKIN: No jaundice, rashes, or lesions. No wounds seen anteriorly. Skin warm/ dry. Chronic vascular skin changes noted to bilateral lower legs and feet. HEAD: Atraumatic. Normocephalic. EYES: Pupils equal and round and reactive. Extraocular motions intact. No scleral icterus. No injection or drainage. Fundi not examined. ENT: Hearing grossly normal. Nose without bleeding or purulent drainage. Throat without visible erythema, exudates, masses, or lesions. Poor dentition. NECK: Trachea midline. Supple, nontender. No palpable thyroid enlargement or nodularity. CARDIOVASCULAR: Regular rate and rhythm without murmur. No JVD. Peripheral pulses symmetric. RESPIRATORY/CHEST: Symmetric, unlabored respirations. Clear to auscultation. Breath sounds equal bilaterally. No wheezes, rales, or rhonchi. GASTROINTESTINAL: Abdomen soft, non-tender, distended. + Ascites, limits palpation no readily palpable masses. No guarding. Bowel sounds present. GENITOURINARY: Without palpable bladder distension. MUSCULOSKELETAL: Extremities without clubbing, cyanosis. Trace edema to feet, ankles. No joint tenderness or effusion noted. No calf tenderness. No mottling or clubbing. LYMPHATICS: No palpable cervical or supraclavicular adenopathy. NEUROLOGICAL: Awake and alert, oriented x3. Appropriate, pleasant. Appears to have reasonable insight. Motor and sensory grossly within normal limits. Follows commands. Cognitively sharp. Moves all extremities. PSYCHIATRIC: No obvious anxiety/depression. no apparent hallucinations or other psychotic thought process. Diagnostic Tests Laboratory: Laboratory Results - last 72 hr 03/28/18 03/28/18 03/29/18 04:14 16:35 04:51 WBC 6.2 5.6 RBC 2.07 L 1.98 L Hgb 7.5 L 7.0 L Hct 21.8 L 20.5 L* MCV 105.7 H 103.1 H MCH 36.1 H 35.5 H MCHC 34.1 34.4 RDW 17.4 H 17.0 Plt Count 108 L 118 L MPV 9.0 8.7 Prelim Diff (Auto) Certified Pathology Assistant Neut % (Auto) 73.9 H 70.3 H Lymph % (Auto) 12.5 15.8 [place] % (Auto) 12.9 H 12.2 H Eos % (Auto) 0.4 1.3 Baso % (Auto) 0.3 0.4 Neut # (Auto) 4.6 3.9 Lymph # (Auto) 0.8 L 0.9 L [place] # (Auto) 0.8 0.7 Eos # (Auto) 0.0 0.1 Baso # (Auto) 0.0 0.0 WBC Differential . . Differential Comment Auto diff final Auto diff final Sodium Potassium Chloride Carbon Dioxide Anion Gap BUN Creatinine Estimated GFR Random Glucose Calcium Prot Corrected Calcium Calcium Adj for Albumin Magnesium Iron 11 L TIBC 195 L % Saturation 5.7 L Total Bilirubin AST ALT Alkaline Phosphatase Total Protein Albumin Stl C.difficile DNA Amp St C. diff Tox Epid 027 Blood Type Antibody Screen MTS Gel Crossmatch 03/29/18 03/29/18 03/30/18 04:51 09:56 00:00 WBC RBC Hgb Hct MCV MCH MCHC RDW Plt Count MPV Prelim Diff (Auto) Neut % (Auto) Lymph % (Auto) [place] % (Auto) Eos % (Auto) Baso % (Auto) Neut # (Auto) Lymph # (Auto) [place] # (Auto) Eos # (Auto) Baso # (Auto) WBC Differential Differential Comment Sodium 138 Potassium 3.5 Chloride 106 Carbon Dioxide 25.6 Anion Gap 6 BUN 21 H Creatinine 0.93 Estimated GFR 80 L Random Glucose 90 Calcium 7.2 L* Prot Corrected Calcium 8.1 L Calcium Adj for Albumin Magnesium 1.9 Iron TIBC % Saturation Total Bilirubin 1.3 H AST 103 H ALT 62 Alkaline Phosphatase 179 H Total Protein 5.5 L Albumin 1.9 L Stl C.difficile DNA Amp Negative St C. diff Tox Epid 027 Negative Blood Type O Positive Antibody Screen Negative MTS Gel Crossmatch See Detail 03/30/18 03/30/18 05:13 05:13 WBC 5.7 RBC 2.70 L Hgb 9.4 L D Hct 26.9 L MCV 99.4 D MCH 34.7 H MCHC 34.9 RDW 18.3 H Plt Count 145 L MPV 8.1 Prelim Diff (Auto) Neut % (Auto) 68.1 Lymph % (Auto) 15.8 [place] % (Auto) 12.6 H Eos % (Auto) 3.2 Baso % (Auto) 0.3 Neut # (Auto) 3.9 Lymph # (Auto) 0.9 L [place] # (Auto) 0.7 Eos # (Auto) 0.2 Baso # (Auto) 0.0 WBC Differential . Differential Comment Auto diff final Sodium 140 Potassium 3.6 Chloride 108 H Carbon Dioxide 25.5 Anion Gap 7 BUN 19 H Creatinine 0.93 Estimated GFR 80 L Random Glucose 93 Calcium 7.1 L* Prot Corrected Calcium Calcium Adj for Albumin 7.8 L Magnesium 2.0 Iron TIBC % Saturation Total Bilirubin 2.5 H AST 65 H ALT 51 Alkaline Phosphatase 196 H Total Protein 5.7 L Albumin 1.8 L Stl C.difficile DNA Amp St C. diff Tox Epid 027 Blood Type Antibody Screen MTS Gel Crossmatch Result Diagrams: 03/30/18 05:13 03/30/18 05:13 Microbiology: Microbiology 03/26/18 04:35 Cryptosporidium Antigen - Final Stool Negative - No Cryptosporicium antigen detected In selected cases of patients with a history of immunosuppression or foreign travel, a full ova and parasites examination may be desired. Contact the microbiology lab if full workup is indicated and subit another specimen for testing. Giardia Antigen ([place]) - Final Negative - No Giardia Antigen detected In selected cases of patients with a history of immunosuppression or foreign travel, a full ova and parasites examination may be desired. Contact the microbiology lab if full workup is indicated and subit another specimen for testing. Patient/Family Conference Family Conference Time: Family Conference Location: Bedside Issues Discussed: Met with patient at bedside discussion included the following: * Palliative care role, purpose, approach * Additional medical, psychosocial, history * Patients general health, functional status, in the months leading up to the current hospitalization * Patient understanding of the current medical problems * Patient understanding of prognosis * Patients goals of care * Current medical treatment options and benefits/burdens of those options * Likely scenarios comparing ongoing aggressive care with a transition to comfort measures only * Legal decision makers/advanced directives * CODE STATUS and benefits/burdens/limitations of resuscitation * Questions answered to the best of my ability * Palliative care contact information provided Assessment and Plan - Disease Oriented Problem List (1) Ulcer of esophagus (2) Anemia (3) Liver mass (4) Ascites (5) Cirrhosis of liver Pertinent Non-Medical Issues: Psychosocial: Retired since the . 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 No children. All of his extended family except for his 98-year-old father who is of pretty good health for a 98 -year-old. Spiritual: Legal:Patient currently alert oriented and able to make his own decisions. He indicates his only living family is his 98-year-old father. He has no other close friends or others whom he could entrust with medical decision making, POA etc. He wishes to talk further with case management, healthcare social worker regarding what he needs to do to get his affairs in order. Ethical issues impacting care: No ethical issues identified Important Contacts: Father Lele Sams [phone] Prognosis: This patient was admitted for diarrhea and hematemesis. Concern for GI bleed, as well as new liver mass identified. Stable thus far EGD and colonoscopy negative for active bleeding. Anemic status post transfusion. Likely liver dysfunction will continue especially if it is a malignancy. Patient not interested in pursuing chemotherapy so may not warrant biopsy except for better identification/diagnoses. High risk for continued clinical deterioration is liver disease progresses. May be appropriate for hospice if goals compatible. Code Status: No Code DNR Plan: Legal decision maker:Patient currently alert oriented and able to make his own decisions. He indicates his only living family is his 98-year-old father. He has no other close friends or others whom he could entrust with medical decision making, POA etc. He wishes to talk further with case management, healthcare social worker regarding what he needs to do to get his affairs in order. Goals: Patient requests DNR. He would not be interested in pursuing chemotherapy should he have a liver malignancy. He is interested in outpatient follow-up with GI for supportive care and establishing primary to manage his current conditions. Should he continue to decline or experience progression of liver disease he would want hospice and comfort measures at home. CODE STATUS: DNR SYMPTOMS: --Reflux-patient reports long history of acid reflux. + EGD this admission with large ulcers noted in esophagus, biopsy pending. On Protonix. --Nausea/vomiting-patient endorses several weeks of nausea and. Hematemesis just before presentation. No further nausea or vomiting during hospital course. Has Zofran available. --Pain-endorses a very mild epigastric "discomfort "which she says is not really especially painful but more of a nuisance. Does not feel he needs a pain medication for --Ascites-patient endorses abdominal bloating for several weeks to a month or so. 2/2 liver disease process. May benefit from ultrasound-guided paracentesis. --Fatigue/generalized weakness.-Patient endorses generalized weakness and fatiguing easily over the past few weeks. This is likely multifactorial from both vomiting and diarrhea, as well as anemic state. Endorses improvement overall during hospitalization, feels much better today during previous days. PT following. PT has recommended home health, would likely need ongoing therapy to maintain strength and function and avoid further debility. Palliative care will continue to follow during hospital course as condition evolves, to assist patient/decision-maker with understanding of medical conditions, weighing benefits/burdens of treatment options, for clarification of goals of treatment. Additionally will assist with any symptoms of palliative concern Appreciation Thank you for the opportunity to participate in the care of Lele Sams. Attestation Attestation: To help prompt me to consider important information that might be impacting today's encounter and assessment, information from prior notes written by myself or my colleagues may have been "brought forward" into today's note. My signature on this note, however, is an attestation that I personally performed the exam, history, and/or decision-making noted today, and, unless otherwise indicated, the interactions with patient, family, and staff as well as the review of records all occurred today. I also attest that the listed assessment and stated plan reflect my best clinical judgment today based on the combination of historical information, prior notes, and today's exam/ interactions. When time spent is documented, it refers only to time spent today by the signer, or if indicated, combined time spent today by collaborating physician/nurse practitioner.
[2018-03-31 05:07] LABS: Baso % (Auto) 0.4 % (0.0-2.0); Eos # (Auto) 0.2 th/mm3 (0.0-0.4); Eos % (Auto) 3.6 % (0.0-4.0); Hematocrit 27.2 % (39.0-51.0); Hemoglobin 9.3 gm/dL (13.0-17.0); Lymph # (Auto) 0.9 th/mm3 (1.0-4.8); Lymph % (Auto) 14.9 % (9.0-44.0); Mean Corpuscular HGB Conc 34.3 % (32.0-36.0); Mean Corpuscular Hemoglobin 34.2 pg (27.0-34.0); Mean Corpuscular Volume 99.7 fL (80.0-100.0); Mean Platelet Volume 8.2 fL (7.0-11.0); Mono # (Auto) 0.8 th/mm3 (0.0-0.9); Mono % (Auto) 12.5 % (0.0-8.0); Neut # (Auto) 4.1 th/mm3 (1.8-7.7); Neut % (Auto) 68.6 % (16.0-70.0); Platelet Count 167 th/mm3 (150-450); Red Blood Count 2.73 mil/mm3 (4.50-5.90); Red Cell Distribution Width 18.4 % (11.6-17.2)
[2018-03-31 05:27] LABS: Calcium 7.2 mg/dL (8.5-10.1); Carbon Dioxide 25.5 meq/L (21.0-32.0); Magnesium 2.1 mg/dL (1.5-2.5); Potassium 3.6 meq/L (3.5-5.1)
[2018-03-31 05:37] LABS: Albumin 1.8 g/dL (3.4-5.0)
[2018-03-31] MEDS: Lactobacillus Acidophilus/L. Spores Tablet PO SCH ×3 (09:25→17:56)
[2018-03-31] MEDS: Folic Acid 1 MG Tablet PO SCH (09:25)
[2018-03-31] MEDS: Ferrous Sulfate 325 MG Tablet PO SCH (09:26)
[2018-03-31] MEDS: Spironolactone 25 MG Tablet PO SCH ×2 (09:26→17:56)
--- NOTE | 2018-03-31 09:33 | P.PN ---
Subjective Interval history: Follow-up cirrhosis and ascites. Lost 1 kg since started on IV Lasix. Mildly tachycardic today. Agrees to be dc but wants to stay another day coz he wants to be a bit stronger. Improving diarrhea 2 semiformed stools today Physical Exam Vital signs: Vital Signs 03/30/18 12:00 03/30/18 16:00 03/30/18 20:00 Temperature 97.2 F L 97.9 F 98.1 F Pulse Rate 93 H 113 H 113 H Respiratory Rate 18 18 17 Blood Pressure 114/64 115/72 117/65 Pulse Oximetry 95 95 94 L 03/31/18 00:00 03/31/18 08:00 Temperature 97.7 F 97.6 F Pulse Rate 92 H 113 H Respiratory Rate 17 17 Blood Pressure 112/61 139/70 Pulse Oximetry 91 L 97 Intake & Output 03/30/18 03/31/18 03/31/18 18:59 06:59 18:59 Intake Total 900 / 900 Balance 900 / 900 Weight 73.4 kg Intake: Oral 900 / 900 Other: # Voids 3 Date of Last Bowel Movement 03/30/18 # Bowel Movements 3 Narrative: chronically ill appearing 73yo wm aaox3 nad pleasant heart s1s2 tachycardic lungs clear no wrr abd soft nondt pos bs ext bilateral pitting edema r ankle club deformity, venous congestive discoloration Skin warm no lesions Results - Labs CBC & Chem 7: 03/31/18 04:26 03/31/18 04:26 Laboratory Results - last 24 hr 03/31/18 03/31/18 04:26 04:26 WBC 6.0 RBC 2.73 L Hgb 9.3 L Hct 27.2 L MCV 99.7 MCH 34.2 H MCHC 34.3 RDW 18.4 H Plt Count 167 MPV 8.2 Neut % (Auto) 68.6 Lymph % (Auto) 14.9 [place] % (Auto) 12.5 H Eos % (Auto) 3.6 Baso % (Auto) 0.4 Neut # (Auto) 4.1 Lymph # (Auto) 0.9 L [place] # (Auto) 0.8 Eos # (Auto) 0.2 Baso # (Auto) 0.0 WBC Differential . Differential Comment Auto diff final Sodium 139 Potassium 3.6 Chloride 107 Carbon Dioxide 25.5 Anion Gap 7 BUN 19 H Creatinine 0.91 Estimated GFR 82 L Random Glucose 104 Calcium 7.2 L* Calcium Adj for Albumin 9.0 Magnesium 2.1 Albumin 1.8 L - Imaging ITS Impressions Abdomen/Pelvis CT 03/26/18 00:02 CONCLUSION: 1. Cirrhotic liver with stigmata of portal hypertension. Liver masses including dominant right lobe mass worrisome for hepatocellular carcinoma. Portal vein thrombosis. 2. Abundant ascites with omental thickening which is nonspecific. Liver Ultrasound 03/27/18 00:00 CONCLUSION: 1. Cirrhotic liver with heterogeneity particularly in the anterior segment the right lobe of the liver. An underlying mass cannot be excluded. 2. Portal vein thrombosis. 3. Gallstones. The gallbladder wall is thickened. Gallbladder wall thickening can be associated with inflammatory change and cholecystitis but also with generalized hepatic disease. This finding can be correlated clinically. Chest X-Ray 03/29/18 13:23 CONCLUSION: Diffuse interstitial prominence differential considerations would include chronic interstitial changes versus mild CHF. There is no pleural effusion. - Procedures EGD and colonoscopy Assessment and Plan - Assessment (1) Upper gastrointestinal hemorrhage Code(s): K92.2 - Gastrointestinal hemorrhage, unspecified Status: Acute - Plan -ACUTE UPPER GIB due to esophageal ulcers - cont ppi bid, no nsaids or ac for now. Antireflux mechanisms discussed with the patient. Pathology pending -Iron def ANEMIA of acute blood loss due to above, may need transfusion if hbg 7 or less, will monitor and start fe. Improved status post 2 unit packed RBC transfusion -CIRRHOSIS with PORTAL THROMBOSIS, possible LIVER MASS R LOBE w ascites abundant - ct lasix, aldactone if tolerated, when stable needs follow up w gi, fluid restriction when stable, AFP 24 fu w GI consider BB. Because of increasing ascites and weight gain, ct IV Lasix he already lost 1 kg. -Hypoalbuminemia. Start Ensure -ROGER w azotemia due to ugib - monitor renal function. Improved -ANXIETY /SIMI - cont home meds -ETOH ABUSE - DT protocol, no signs of wd so far, thiamine, folate, cessation counseling, social consult -DVT prophylaxis - scds only, due to hemorrhage -GENERALIZED WEAKNESS- PT EVAL recommends home w HHC when stable. -DIARRHEA - chronic, needs fu w gi, abdominal CT and stool studies negative continue Lactinex and Questran. Improving Palliative care consulted to clarify goals of care. He is a DNR. He does not want chemotherapy in case pathology proves to be malignant Discharge Planning: Possible discharge in am if improved diarrhea. Ct IV diuresis
--- NOTE | 2018-03-31 12:18 | P.DCO ---
- Diagnosis (1) Upper gastrointestinal hemorrhage Status: Acute (2) Ulcer of esophagus Status: Acute (3) Ascites Status: Acute (4) Cirrhosis of liver Status: Acute - Physical Therapy Order: Evaluate and treat, Improve ambulation, Strength and gait training - Home Health Nursing Order: Medical education, Medication education-adverse effect, Nursing assessment with vital signs - Assistant Professor Of Theater Order: To evaluate: Living conditions/environment, Support services Order: To provide: Long range planning, Community services - Case Management Consult Case Management Consult-Home Health: Yes - Certification I have seen patient Lele Mitchell on 03/31/18. My clinical findings support the need for the requested home health care services because: Deconditioned with increased weakness I certify that my clinical findings support that this patient is homebound because: Unsafe to leave home unassisted, Need for psychosocial assistance
--- NOTE | 2018-03-31 15:26 | P.PNPAL ---
Reason for Visit Reason for visit: a. To assist with evaluation and management of symptoms including: fatigue, n/v b. To assist medical decision maker(s) with: better understanding of current medical conditions; weighing benefits/burdens of medical treatment options; making medical treatment decisions. Subjective Subjective/Interval History: Pt seen today to follow up on comfort, goals. Palliative met with pt last evening, discussion RE goals, social support, planning. Has remained stable, d/c planning for d/c home tomorrow w home health to assist. H&H stable. PT assessment earlier, fairly stable ambulation w walker and standby assist, Fatigues easily, weak. 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 He is alert, oriented appropriate. He is pleasant, recalls me from last night. Endorses feeling Ok overall just "worn out " from activity with PT. He denies pain. Denies n/v. Denies dyspnea. Fair appetite. He is looking forward to d/c home tomorrow w home health. Review w him 5 wishes living will guide, community DNR. He signed Community DNR , faxed to medical records. He will review 5 wishes documents. He again endorses he has no one family/friend mixon that he would wish to designate as HCS , worries his elderly father ([id number]) would not be able to serve as such. He wants to follow up with GI outpt, understands disease process with continue and he is expected to continue to decline. He would NOT want to pursue chemo or invasive tx should liver findings be malignant. For right now he wants to maintain as much of his function as possible to take care of his father for as long as possible however when he experiences decline will want hospice services for comfort as he nears end-of-life. He indicates he has hospice contact information. 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 . Objective Vital Signs: Vital Signs 03/30/18 16:00 03/30/18 20:00 03/31/18 00:00 Temperature 97.9 F 98.1 F 97.7 F Pulse Rate 113 H 113 H 92 H Respiratory Rate 18 17 17 Blood Pressure 115/72 117/65 112/61 Pulse Oximetry 95 94 L 91 L 03/31/18 08:00 03/31/18 12:00 Temperature 97.6 F 97.9 F Pulse Rate 113 H 93 H Respiratory Rate 17 17 Blood Pressure 139/70 129/60 Pulse Oximetry 97 94 L Intake & Output 03/30/18 03/31/18 03/31/18 18:59 06:59 18:59 Intake Total 900 / 900 Balance 900 / 900 Weight 73.4 kg Intake: Oral 900 / 900 Other: # Voids 3 Date of Last Bowel Movement 03/30/18 03/31/18 # Bowel Movements 3 Physical Exam: CONSTITUTIONAL/GENERAL: This is an adequately nourished patient, alert, pleasant TUBES/LINES/DRAINS: Peripheral IV upper extremity. SKIN: No jaundice, rashes, or lesions. No wounds seen anteriorly. Skin warm/ dry. Chronic vascular skin changes noted to bilateral lower legs and feet. ENT: Hearing grossly normal. Nose without bleeding or purulent drainage. Throat without visible erythema, exudates, masses, or lesions. Poor dentition. NECK: Trachea midline. Supple, nontender. No palpable thyroid enlargement or nodularity. CARDIOVASCULAR: Regular rate and rhythm without murmur. No JVD. Peripheral pulses symmetric. RESPIRATORY/CHEST: Symmetric, unlabored respirations. Clear to auscultation. Breath sounds equal bilaterally. No wheezes, rales, or rhonchi. GASTROINTESTINAL: Abdomen soft, non-tender, distended. + Ascites, limits palpation no readily palpable masses. No guarding. Bowel sounds present. NEUROLOGICAL: Awake and alert, oriented x3. Appropriate, pleasant. Appears to have reasonable insight. Motor and sensory grossly within normal limits. Follows commands. Cognitively sharp. Moves all extremities. PSYCHIATRIC: No obvious anxiety/depression. no apparent hallucinations or other psychotic thought process. Diagnostic Tests Laboratory: Laboratory Results - last 72 hr 03/28/18 03/29/18 03/29/18 16:35 04:51 04:51 WBC 5.6 RBC 1.98 L Hgb 7.0 L Hct 20.5 L* MCV 103.1 H MCH 35.5 H MCHC 34.4 RDW 17.0 Plt Count 118 L MPV 8.7 Prelim Diff (Auto) Prevocational/Rehabilitation Counselor Neut % (Auto) 70.3 H Lymph % (Auto) 15.8 [place] % (Auto) 12.2 H Eos % (Auto) 1.3 Baso % (Auto) 0.4 Neut # (Auto) 3.9 Lymph # (Auto) 0.9 L [place] # (Auto) 0.7 Eos # (Auto) 0.1 Baso # (Auto) 0.0 WBC Differential . Differential Comment Auto diff final Sodium 138 Potassium 3.5 Chloride 106 Carbon Dioxide 25.6 Anion Gap 6 BUN 21 H Creatinine 0.93 Estimated GFR 80 L Random Glucose 90 Calcium 7.2 L* Prot Corrected Calcium 8.1 L Calcium Adj for Albumin Magnesium 1.9 Iron 11 L TIBC 195 L % Saturation 5.7 L Total Bilirubin 1.3 H AST 103 H ALT 62 Alkaline Phosphatase 179 H Total Protein 5.5 L Albumin 1.9 L Stl C.difficile DNA Amp St C. diff Tox Epid 027 Blood Type Antibody Screen MTS Gel Crossmatch 03/29/18 03/30/18 03/30/18 09:56 00:00 05:13 WBC 5.7 RBC 2.70 L Hgb 9.4 L D Hct 26.9 L MCV 99.4 D MCH 34.7 H MCHC 34.9 RDW 18.3 H Plt Count 145 L MPV 8.1 Prelim Diff (Auto) Neut % (Auto) 68.1 Lymph % (Auto) 15.8 [place] % (Auto) 12.6 H Eos % (Auto) 3.2 Baso % (Auto) 0.3 Neut # (Auto) 3.9 Lymph # (Auto) 0.9 L [place] # (Auto) 0.7 Eos # (Auto) 0.2 Baso # (Auto) 0.0 WBC Differential . Differential Comment Auto diff final Sodium Potassium Chloride Carbon Dioxide Anion Gap BUN Creatinine Estimated GFR Random Glucose Calcium Prot Corrected Calcium Calcium Adj for Albumin Magnesium Iron TIBC % Saturation Total Bilirubin AST ALT Alkaline Phosphatase Total Protein Albumin Stl C.difficile DNA Amp Negative St C. diff Tox Epid 027 Negative Blood Type O Positive Antibody Screen Negative MTS Gel Crossmatch See Detail 03/30/18 03/31/18 03/31/18 05:13 04:26 04:26 WBC 6.0 RBC 2.73 L Hgb 9.3 L Hct 27.2 L MCV 99.7 MCH 34.2 H MCHC 34.3 RDW 18.4 H Plt Count 167 MPV 8.2 Prelim Diff (Auto) Neut % (Auto) 68.6 Lymph % (Auto) 14.9 [place] % (Auto) 12.5 H Eos % (Auto) 3.6 Baso % (Auto) 0.4 Neut # (Auto) 4.1 Lymph # (Auto) 0.9 L [place] # (Auto) 0.8 Eos # (Auto) 0.2 Baso # (Auto) 0.0 WBC Differential . Differential Comment Auto diff final Sodium 140 139 Potassium 3.6 3.6 Chloride 108 H 107 Carbon Dioxide 25.5 25.5 Anion Gap 7 7 BUN 19 H 19 H Creatinine 0.93 0.91 Estimated GFR 80 L 82 L Random Glucose 93 104 Calcium 7.1 L* 7.2 L* Prot Corrected Calcium Calcium Adj for Albumin 7.8 L 9.0 Magnesium 2.0 2.1 Iron TIBC % Saturation Total Bilirubin 2.5 H AST 65 H ALT 51 Alkaline Phosphatase 196 H Total Protein 5.7 L Albumin 1.8 L 1.8 L Stl C.difficile DNA Amp St C. diff Tox Epid 027 Blood Type Antibody Screen MTS Gel Crossmatch Result Diagrams: 03/31/18 04:26 03/31/18 04:26 Microbiology: Microbiology 03/26/18 04:35 Cryptosporidium Antigen - Final Stool Negative - No Cryptosporicium antigen detected In selected cases of patients with a history of immunosuppression or foreign travel, a full ova and parasites examination may be desired. Contact the microbiology lab if full workup is indicated and subit another specimen for testing. Giardia Antigen ([place]) - Final Negative - No Giardia Antigen detected In selected cases of patients with a history of immunosuppression or foreign travel, a full ova and parasites examination may be desired. Contact the microbiology lab if full workup is indicated and subit another specimen for testing. Assessment and Plan - Disease Oriented Problem List (1) Ulcer of esophagus (2) Anemia (3) Liver mass (4) Ascites (5) Cirrhosis of liver Pertinent Non-Medical Issues: Psychosocial: Retired since the . 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 No children. All of his extended family except for his 98-year-old father who is of pretty good health for a 98 -year-old. Spiritual: Legal:Patient currently alert oriented and able to make his own decisions. He indicates his only living family is his 98-year-old father. He has no other close friends or others whom he could entrust with medical decision making, POA etc. He wishes to talk further with case management, high school social studies tutor regarding what he needs to do to get his affairs in order. Ethical issues impacting care: No ethical issues identified Important Contacts: Father Lele Sams [phone] Prognosis: This patient was admitted for diarrhea and hematemesis. Concern for GI bleed, as well as new liver mass identified. Stable thus far EGD and colonoscopy negative for active bleeding. Anemic status post transfusion. Likely liver dysfunction will continue especially if it is a malignancy. Patient not interested in pursuing chemotherapy so may not warrant biopsy except for better identification/diagnoses. High risk for continued clinical deterioration is liver disease progresses. May be appropriate for hospice if goals compatible. Code Status: No Code DNR Plan: Legal decision maker:Patient currently alert oriented and able to make his own decisions. He indicates his only living family is his 98-year-old father. He has no other close friends or others whom he could entrust with medical decision making, POA etc. He wishes to talk further with case management, high school social studies tutor regarding what he needs to do to get his affairs in order. Palliative provided him with 5 wishes advance directive guide to assist him with documenting what his end-of-life wishes would be. Goals: Patient requests DNR. He would not be interested in pursuing chemotherapy should he have a liver malignancy. He is interested in outpatient follow-up with GI for supportive care and establishing primary to manage his current conditions. When he experiences decline or progression of liver disease he would want hospice and comfort measures at home. He also wants ongoing guidance/support from to assist with arrangements, care etc for his elderly father as his own illness progresses. CODE STATUS: DNR SYMPTOMS: --Reflux-patient reports long history of acid reflux. + EGD this admission with large ulcers noted in esophagus, biopsy pending. On Protonix. --Nausea/vomiting-patient endorses several weeks of nausea and. Hematemesis just before presentation. No further nausea or vomiting during hospital course. Has Zofran available. --Pain-endorses a very mild epigastric "discomfort "which she says is not really especially painful but more of a nuisance. Does not feel he needs a pain medication for --Ascites-patient endorses abdominal bloating for several weeks to a month or so. 2/2 liver disease process. May benefit from ultrasound-guided paracentesis if enough fluid to drain. --Fatigue/generalized weakness.-Patient endorses generalized weakness and fatiguing easily over the past few weeks. This is likely multifactorial from both vomiting and diarrhea, as well as anemic state. Endorses improvement overall during hospitalization, feels much better today during previous days. PT following. PT has recommended home health, would likely need ongoing therapy to maintain strength and function and avoid further debility. Palliative care will continue to follow during hospital course as condition evolves, to assist patient/decision-maker with understanding of medical conditions, weighing benefits/burdens of treatment options, for clarification of goals of treatment. Additionally will assist with any symptoms of palliative concern Attestation Attestation: To help prompt me to consider important information that might be impacting today's encounter and assessment, information from prior notes written by myself or my colleagues may have been "brought forward" into today's note. My signature on this note, however, is an attestation that I personally performed the exam, history, and/or decision-making noted today, and, unless otherwise indicated, the interactions with patient, family, and staff as well as the review of records all occurred today. I also attest that the listed assessment and stated plan reflect my best clinical judgment today based on the combination of historical information, prior notes, and today's exam/ interactions. When time spent is documented, it refers only to time spent today by the signer, or if indicated, combined time spent today by collaborating physician/nurse practitioner.
[2018-03-31 20:36] VITALS: RESP 17
--- NOTE | 2018-04-01 07:40 | P.PN ---
Subjective Interval history: F/u ascites and diarrhea. States his abdominal distention and bilateral lower extremity improving. Stools are forming up. Physical Exam Vital signs: Vital Signs 03/31/18 08:00 03/31/18 12:00 03/31/18 16:00 Temperature 97.6 F 97.9 F 97.9 F Pulse Rate 113 H 93 H 94 H Respiratory Rate 17 17 18 Blood Pressure 139/70 129/60 128/62 Pulse Oximetry 97 94 L 97 03/31/18 20:00 04/01/18 00:00 Temperature 97.8 F 97.7 F Pulse Rate 108 H 105 H Respiratory Rate 17 17 Blood Pressure 114/60 112/67 Pulse Oximetry 95 95 Intake & Output 03/31/18 04/01/18 04/01/18 18:59 06:59 18:59 Intake Total 720 / 720 900 / 900 Balance 720 / 720 900 / 900 Weight 73.4 kg Intake: Oral 720 / 720 900 / 900 Other: # Voids 3 3 Date of Last Bowel Movement 03/31/18 03/31/18 # Bowel Movements 1 Narrative: chronically ill appearing 73yo wm aaox3 nad pleasant heart s1s2 lungs clear no wrr abd soft nondt pos bs ext bilateral pitting edema r ankle club deformity, venous congestive discoloration Skin warm no lesions Results - Labs CBC & Chem 7: 03/31/18 04:26 03/31/18 04:26 - Procedures EGD and colonoscopy Assessment and Plan - Assessment (1) Upper gastrointestinal hemorrhage Code(s): K92.2 - Gastrointestinal hemorrhage, unspecified Status: Acute - Plan -ACUTE UPPER GIB due to esophageal ulcers - cont ppi bid, no nsaids or ac for now. Antireflux mechanisms discussed with the patient. Pathology pending -Iron def ANEMIA of acute blood loss due to above, may need transfusion if hbg 7 or less, will monitor and start fe. Improved status post 2 unit packed RBC transfusion -CIRRHOSIS with PORTAL THROMBOSIS, possible LIVER MASS R LOBE w ascites abundant - ct lasix, aldactone if tolerated needs follow up w gi, fluid restriction when stable, AFP 24 fu w GI consider BB. Because of increasing ascites and weight gain, ct IV Lasix he already lost 1 kg. -Hypoalbuminemia. Start Ensure -ROGER w azotemia due to ugib - monitor renal function. Improved -ANXIETY /SIMI - cont home meds -ETOH ABUSE - DT protocol, no signs of wd so far, thiamine, folate, cessation counseling, social consult -DVT prophylaxis - scds only, due to hemorrhage -GENERALIZED WEAKNESS- PT EVAL recommends home w HHC when stable. -DIARRHEA - chronic, needs fu w gi, abdominal CT and stool studies negative continue Lactinex and Questran. Improving Palliative care consulted to clarify goals of care. He is a DNR. He does not want chemotherapy in case pathology proves to be malignant
[2018-04-01 09:00] VITALS: O2SAT 97
[2018-04-01] MEDS: Spironolactone 25 MG Tablet PO SCH (09:15)
[2018-04-01] MEDS: Folic Acid 1 MG Tablet PO SCH (09:16)
[2018-04-01] MEDS: Ferrous Sulfate 325 MG Tablet PO SCH (09:16)
[2018-04-01] MEDS: Lactobacillus Acidophilus/L. Spores Tablet PO SCH ×2 (09:16→13:08)
[2018-04-01 12:10] VITALS: BP 133/64; PULSE 116; TEMP 97.6
--- NOTE | 2018-04-01 14:03 | P.PNGI ---
Subjective Interval history: Patient sitting up in bed Awaiting discharge States he will follow-up with case management to arrange GI follow-up Patient denies nausea vomiting or abdominal pain at this time <Betsy Lorenzana - Last Filed: 04/01/18 13:58> Physical Exam Vital signs: Vital Signs 03/31/18 16:00 03/31/18 20:00 04/01/18 00:00 Temperature 97.9 F 97.8 F 97.7 F Pulse Rate 94 H 108 H 105 H Respiratory Rate 18 17 17 Blood Pressure 128/62 114/60 112/67 Pulse Oximetry 97 95 95 04/01/18 08:00 04/01/18 12:00 Temperature 97.7 F 97.6 F Pulse Rate 107 H 116 H Respiratory Rate 17 17 Blood Pressure 131/62 133/64 Pulse Oximetry 97 97 Intake & Output 03/31/18 04/01/18 04/01/18 18:59 06:59 18:59 Intake Total 720 / 720 900 / 900 Balance 720 / 720 900 / 900 Weight 73.4 kg Intake: Oral 720 / 720 900 / 900 Other: # Voids 3 3 Date of Last Bowel Movement 03/31/18 03/31/18 # Bowel Movements 1 - Constitutional no acute distress, chronically ill appearing - Routine HEENT Exam Head: Present: normocephalic - Routine Respiratory Exam Present: CTA bilaterally - Routine Cardiovascular Exam Present: RRR - Routine Abdominal Exam Present: soft, normoactive bowel sounds, distended. Absent: tenderness, guarding, firm - Routine Skin Exam Present: dry, pallor, warm - Routine Psychiatric Exam Present: normal affect, cooperative <Betsy Lorenzana - Last Filed: 04/01/18 13:58> Vital signs: Vital Signs 03/31/18 20:00 04/01/18 00:00 04/01/18 08:00 Temperature 97.8 F 97.7 F 97.7 F Pulse Rate 108 H 105 H 107 H Respiratory Rate 17 17 17 Blood Pressure 114/60 112/67 131/62 Pulse Oximetry 95 95 97 04/01/18 12:00 Temperature 97.6 F Pulse Rate 116 H Respiratory Rate 17 Blood Pressure 133/64 Pulse Oximetry 97 Intake & Output 03/31/18 04/01/18 04/01/18 18:59 06:59 18:59 Intake Total 720 / 720 900 / 900 Balance 720 / 720 900 / 900 Weight 73.4 kg Intake: Oral 720 / 720 900 / 900 Other: # Voids 3 3 Date of Last Bowel Movement 03/31/18 03/31/18 04/01/18 # Bowel Movements 1 <Samantha Vanessa - Last Filed: 04/01/18 16:31> Results - Labs CBC & Chem 7: 03/31/18 04:26 03/31/18 04:26 - Procedures EGD and colonoscopy <Betsy Lorenzana - Last Filed: 04/01/18 13:58> - Labs CBC & Chem 7: 03/31/18 04:26 03/31/18 04:26 <Samantha Vanessa - Last Filed: 04/01/18 16:31> Assessment and Plan (1) Upper gastrointestinal hemorrhage Status: Acute Code(s): K92.2 - Gastrointestinal hemorrhage, unspecified - Plan This patient is a 73-year-old male who presents to the emergency room today with report of loose stools over the last few days with nausea and vomiting. Patient has history of anxiety and alcohol use. Surgical history includes appendectomy. Patient states that this morning he vomited up dark blood as well as had dark loose stool that he describes as black and tarry. Patient denies abdominal pain, fever or chills. Upon consultation, patient reports 3-week history of projectile diarrhea. Patient states he has been having 6-7 loose stools daily. Patient endorses accompanied nausea and vomiting. Denies any sick contacts or recent travel. States initially noted rectal bleeding was bright red and then turned black and tarry over the last 2 days with noted abdominal distention. Patient denies any abdominal pain. Denies use of blood thinners. States he will take and one Advil monthly as needed for headache. Patient states last EGD and colonoscopy was done 12 years ago without any noted findings. Patient denies any unintended weight loss but does endorse decreased appetite. Patient denies any heartburn or difficulty swallowing. Patient denies any use of tobacco products but does report drinking 3-4 beers every evening with dinner. Patient endorses family history Mom at age 48 from liver cancer. States maternal side of family has increased incidence of liver cancer. Our service has been consulted to evaluate patient for upper GI bleeding; possible need for EGD/colonoscopy Upper GI bleeding /diarrhea Patient endorses hematocrit emesis this a.m. as well as dark tarry stools for the last 2 days. Reports projectile diarrhea 6-7 episodes daily for 3 weeks. 03/25/2018 hemoglobin 10.8 hematocrit 31.9 platelet count 212 INR 1.7 total bilirubin 1.5 AST 76 ALT 37 alk phos 203 03/27/2018 Upper GI bleeding Patient denies hematemesis today. 03/26/2018 EGD: 1. The mucosa of the stomach appeared normal 2. Multiple large ulcers were found in the lower third of the esophagus; biopsies were taken 3. Normal duodenal mucosa in the entire examined duodenum 4. Retroflexion was performed and was normal , no evidence of active or recent bleeding. Diarrhea 1 loose stool noted for today patient states dark brown in color 03/26/2018 colonoscopy: 1. Mild diverticulosis was noted in the sigmoid colon 2. Moderate sized internal hemorrhoids 3. No evidence of active or recent bleeding Hemoglobin 7.4 hematocrit 21.6 03/28/2018 Upper GI bleeding Patient denies hematemesis. No reported bleeding Hemoglobin 7.5 hematocrit 21.8 Diarrhea Patient reports one loose stool this a.m. with no noted bleeding. Denies abdominal cramping. 03/27/2018 liver ultrasound revealed the following findings-- 1. Cirrhotic liver with heterogeneity particularly in the anterior segment the right lobe of the liver. An underlying mass cannot be excluded. 2. Portal vein thrombosis. 3. Gallstones. The gallbladder wall is thickened. Gallbladder wall thickening can be associated with inflammatory change and cholecystitis but also with generalized hepatic disease. This finding can be correlated clinically. 03/29/2018 Patient denies hematemesis or noted blood in stool. No noted obvious bleeding Hemoglobin 7.0 hematocrit 20.5-1 of 2 units of packed RBCs being transfused Patient reports intermittent abdominal cramping. States he had 3-4 loose stools yesterday C. difficile specimen pending. Stool studies negative 03/30/2018, patient noting no abdominal pain but moderate distention secondary to cirrhotic liver possible underlying mass. Facial cover very pale with some icterus. Encourage patient to sit up in bed and monitor for any acute or increased shortness of breath. Paracentesis only when symptomatic. Current hemoglobin 9.4 status post transfusion. Discussed with patient discharge planning and he is requesting case management some possible assistance currently patient has been living at home and caring for his elderly father. Recommend palliative care assistance if patient is willing and possible hospice care. C. difficile stool negative, encouraged alcohol abstinence. No in hospital procedures recommended at this time will be glad to follow patient on an outpatient basis. 04/01/2018 Patient denies abdominal pain nausea or vomiting. Abdomen mildly distended, patient agrees to follow-up with GI post discharge for liver mass. Patient preparing for discharge home today. 03/31/2018 WBC 6.0 hemoglobin 9.3 hematocrit 27.2 stable 03/30/2018 total bilirubin 2.5 AST 65 ALT 51 alk phos 196. Plan -Diet as tolerated encourage patient to eat small amounts and hydrate as much as possible -Monitor for bleeding -Bowel regimen -Alcohol abstinence -Probiotics -PPI -Follow-up with GI post discharge for biopsy results/pathology -Case management to arrange home health care to assist patient Patient was seen per myself and Dr. Vanessa, note was written on his behalf - Attending Attestation Dr. vanessa <Betsy Lorenzana - Last Filed: 04/01/18 13:58> (1) Upper gastrointestinal hemorrhage Status: Acute Code(s): K92.2 - Gastrointestinal hemorrhage, unspecified - Attending Attestation As above, will need out patient follow up. Please notify us if needed again during this hospitalization. <Samantha Vanessa - Last Filed: 04/01/18 16:31>
--- NOTE | 2018-04-01 15:48 | P.DS ---
Date of admission: 03/25/18 11:14 Primary care physician: No Primary Care Physician Brief History from admission: Mr. Mitchell is a pleasant 73-year-old male with a history of anxiety, alcohol use who presents to the emergency department due to 3-week duration of diarrhea as well as 2-day duration of nausea vomiting with dark cool type of vomitus. Patient has been having diarrhea for 3 weeks that is greasy and sludge in quality. Initially he did not have much abdominal pain. However in the last few days, he started experiencing abdominal pain. Yesterday and this morning he noticed red blood in the stool. Patient also started having some nausea vomiting. He noticed dark cool color vomitus. Patient denies any history of any liver disease. He does drink 3-4 beer a day. Upon admission patient's hemoglobin was 10.8, MCV 105, INR 1.7, BUN 53 and creatinine 1.41. Past medical history: Anxiety Past surgical history: Appendectomy after ruptured appendix 12 years ago Social history: He quit smoking in 1974. He drinks 3-4 beers a day. Family history: Significant history of liver cancer in the maternal side of the family. Patient's mother had liver cancer at age 58. DS: Diagnosis - Discharge Diagnosis (1) Upper gastrointestinal hemorrhage Status: Acute DS: Medications - Discharge Medications Prescriptions: acidophilus-sporogenes [Acidophilus Ex Str (L. sporog)] 1 tab PO TID #90 tab cholestyramine (with sugar) 4 gm PO BID #60 ea ferrous sulfate [FeroSul] 325 mg PO DAILY #30 tab furosemide 20 mg PO DAILY #30 tab pantoprazole 40 mg PO BID #60 tab potassium chloride 20 meq PO DAILY #30 tab spironolactone [Aldactone] 25 mg PO BID@0900,1800 #60 tab thiamine HCl (vitamin B1) 100 mg PO DAILY #30 tab DS: Summary Hospital Course: -ACUTE UPPER GIB due to esophageal ulcers - cont ppi bid, no nsaids or ac for now. Antireflux mechanisms discussed with the patient. Pathology pending -Iron def ANEMIA of acute blood loss due to above, may need transfusion if hbg 7 or less, will monitor and start fe. Improved status post 2 unit packed RBC transfusion -CIRRHOSIS with PORTAL THROMBOSIS, possible LIVER MASS R LOBE w ascites abundant - ct lasix, aldactone if tolerated needs follow up w gi, fluid restriction when stable, AFP 24 fu w GI consider BB. -Hypoalbuminemia. Start Ensure -ROGER w azotemia due to ugib - monitor renal function. Improved -ANXIETY /SIMI - cont home meds -ETOH ABUSE - DT protocol, no signs of wd so far, thiamine, folate, cessation counseling, social consult -DVT prophylaxis - scds only, due to hemorrhage -GENERALIZED WEAKNESS- PT EVAL recommends home w HHC when stable. -DIARRHEA - chronic, needs fu w gi, abdominal CT and stool studies negative continue Lactinex and Questran. Improving Palliative care consulted to clarify goals of care. He is a DNR. He does not want chemotherapy in case pathology proves to be malignant - Time Spent with Patient Total time spent providing and/or coordinating discharge services: Greater than 30 minutes - Quality: VTE Deep Vein Thrombosis/Pulmonary Embolism Present on Admission: No Exam Vital signs: Vital Signs 03/31/18 16:00 03/31/18 20:00 04/01/18 00:00 Temperature 97.9 F 97.8 F 97.7 F Pulse Rate 94 H 108 H 105 H Respiratory Rate 18 17 17 Blood Pressure 128/62 114/60 112/67 Pulse Oximetry 97 95 95 04/01/18 08:00 04/01/18 12:00 Temperature 97.7 F 97.6 F Pulse Rate 107 H 116 H Respiratory Rate 17 17 Blood Pressure 131/62 133/64 Pulse Oximetry 97 97 Intake & Output 03/31/18 04/01/18 04/01/18 18:59 06:59 18:59 Intake Total 720 / 720 900 / 900 Balance 720 / 720 900 / 900 Weight 73.4 kg Intake: Oral 720 / 720 900 / 900 Other: # Voids 3 3 Date of Last Bowel Movement 03/31/18 03/31/18 # Bowel Movements 1 Narrative: chronically ill appearing 73yo wm [id number] nad pleasant heart s1s2 lungs clear no wrr abd soft nondt pos bs ext bilateral pitting edema r ankle club deformity, venous congestive discoloration Skin warm no lesions Results Procedures completed during hospitalization: EGD and colonoscopy Pending studies at discharge: Pending at discharge 03/26/18 08:52 Surgical [PTH] Routine - Impressions ITS Impressions Abdomen/Pelvis CT 03/26/18 00:02 CONCLUSION: 1. Cirrhotic liver with stigmata of portal hypertension. Liver masses including dominant right lobe mass worrisome for hepatocellular carcinoma. Portal vein thrombosis. 2. Abundant ascites with omental thickening which is nonspecific. Liver Ultrasound 03/27/18 00:00 CONCLUSION: 1. Cirrhotic liver with heterogeneity particularly in the anterior segment the right lobe of the liver. An underlying mass cannot be excluded. 2. Portal vein thrombosis. 3. Gallstones. The gallbladder wall is thickened. Gallbladder wall thickening can be associated with inflammatory change and cholecystitis but also with generalized hepatic disease. This finding can be correlated clinically. Chest X-Ray 03/29/18 13:23 CONCLUSION: Diffuse interstitial prominence differential considerations would include chronic interstitial changes versus mild CHF. There is no pleural effusion. Discharge Plan - Discharge Disposition Patient Disposition: /Home Health Service - Discharge Condition Condition: Stable - Discharge Order Discharge Orders: Discharge Order (Routine); Ordered 04/01/18 Ordered By: Oscar Bryan - Discharge Details Anticipated Discharge Date: 03/30/18 Discharge Comment: dc after I see pt today - Physicians Team Primary Care Provider: Primary Care Physici,No Attending Provider: Oscar Bryan Other Providers: Samantha Huynh MD ; Deng Cr MD
== END 2018-04-01 16:03 | disposition home health service (06) ==
LOC: NEPC 09:22 → NEDA 11:14 → N07 12:45
PROVIDERS: ADMIT Internal Medicine; ATTEND Internal Medicine
PROC: COLONOS (2018-03-26 10:24)